=== PATIENT | female | born 1940 | race African-American/Black ===

== ENCOUNTER → 2016-12-12 | Outpatient (CLI) | payer OTHER ==
[~2016-12-12] VITALS: Ht 160 cm; Wt 119.8 kg
[~2016-12-12] MED LIST: BENTYL 20 MG TA20 M1 PO; HYDROCODON-ACE1 EA12 PO; HYDROCODONE-AP1 EAC6 PO; HYDROCODONE-APA1 TA1 PO; IRON325 MG PO; LIDODERM 5%1 PATC1 TRANSDERM; LIPITOR10 MG PO; METFORMIN HCL500 MG PO; METHOCARBAMOL500 M1 PO; MOBIC7.5 MG PO; PERPHENAZINE PO; SENOKOT-S1 TA1 PO; UNICOMPLEX M TA1 TA1 PO; ZANTAC 150MG T150 MG PO; ZOLOFT50 MG PO
--- NOTE | ~2016-12-12 | HPC ---
[facility] [address] [place] [address] PAIN MANAGEMENT CONSULTATION Name: TERENCEGI F Room #: REG DENNY Leiva#: [id number] Admission: 12/12/16 Attend Phys: Edouard Edwards DO Discharge: Date of : 39 Report #: [id number] THIS REPORT FOR: //name// CC: Seymour Edwards The patient is a 76-year-old female, she had prior been seen as an in-hospital patient in January 2015, nearly 2 years ago for SI mediated pain with trigger point in the gluteus medius, she had prior been seen in 2013 for left SI mediated pain. She somewhat lost to follow up. She returns to pain clinic today for prolonged visit, was seen in the clinic from 10:24, taken to procedure room at 10:50. Greater than 50% of this 25+ minute visit was spent counseling the patient. The patient notes pain has recurred primarily in the low back, radiating into the right thigh, leg, and ankle. She notes thigh. She has been taking copious amount of [employer]ers Back and Body aspirin containing substance, which unfortunately caused significant gastroesophageal reflux. Hydrocodone causes cognitive dysfunction. She notes no specific weakness, but does have paresthesia in the right leg. She denies saddle anesthesia or bowel or bladder continence changes. Rates the pain anywhere from 10 to "15" on a 0-10 visual analog scale. She notes the pain is exacerbated with standing and walking. REVIEW OF SYSTEMS: A complete review of systems was attached to chart and was gone over with the patient. She is . She has a history of non-insulin dependent diabetes, uses metformin; history of dyslipidemia for which she takes atorvastatin, diverticulitis by history, Zoloft for some chronic anxiety and depression. MEDICATIONS: List was reconciled. Pain impact score is averages about 5.2 for all indices queried. PHYSICAL EXAMINATION: Reveals a 5 feet 3 inches, 264 pounds female, BMI is 46.8 kg/m2. Blood pressure is 142/73, pulse 77, and respirations are 18. Cranial nerves 2-12 are grossly intact. Pupils are equal and reactive to light and accommodation. Extraocular muscles are intact. Thyroid is enlarged, no nodules are noted. Cervical range of motion is adequate. Upper extremity strength is preserved. Heart is regular rhythmical without murmur. Lungs are clear. She has a markedly endomorphic build. Rises from chair using armrest. She has a very poor balance. Lumbar flexion averages to good about 90 degrees. Tender in the low back from about L4 down. Lower extremity strength is objectively symmetric. Positive straight leg raise bilaterally. Rene test is negative. Patellar and Achilles reflexes are diminished, but symmetric. Reviewed MRI from 05/21/2014. She has a grade 1 anterolisthesis at L4-L5, fairly significant stenosis at 0.62 cm, dramatic stenosis at L3-4 at 0.42 cm. ASSESSMENT: Symptomatic lumbar radiculopathy secondary to spinal stenosis, [address] [address] PAIN MANAGEMENT CONSULTATION Name: GI PRATT Room #: REG DENNY Leiva#: [id number] Admission: 12/12/16 Attend Phys: Edouard Edwards DO Discharge: Date of : 39 Report #: [id number] sacroiliac joint dysfunction. RECOMMENDATIONS: 1. Meloxicam 7.5 mg b.i.d., discontinue the copious use of Bayers Back and Body. 2. Epidural injection under fluoroscopy today at L5-S1 with 60 mg of triamcinolone 3. Follow up in 3-4 weeks for reevaluation. PROCEDURE NOTE: Lumbar epidural injection under fluoroscopy. PROCEDURE NOTE: After both written and informed consent to include risk of spinal cord damage, increased pain, weakness and dural puncture, the patient was taken to the fluoroscopy suite, placed in the prone position. After sterile prep and drape, a skin wheal with lidocaine was raised. A 6-inch 20-gauge epidural Tuohy needle was inserted in the midline at L5-S1 with good loss to resistance. Negative aspiration for cerebrospinal fluid or blood was noted. Then 1 mL of Omnipaque under biplanar fluoroscopy showed good spread within the epidural space. This was followed with 60 mg of triamcinolone plus 1 mL of 1.5% preservative-free Xylocaine, 0.5 mL Xylocaine was then injected to flush the needle; it was removed. The patient was monitored for an appropriate period of time and discharged in good and stable condition. The patient was discharged in good and stable condition. By: [id number] Edouard Edwards DO /nt
[2016-12-12 09:57] VITALS: BP 142/73
== END | disposition home or self-care (01) ==
LOC: PAIN 06:49
DX: M48.06 Spinal stenosis, lumbar region (principal); M53.3 Sacrococcygeal disorders, not elsewhere classified; F32.9 Major depressive disorder, single episode, unspecified; E11.9 Type 2 diabetes mellitus without complications; Z98.890 Other specified postprocedural states

== ENCOUNTER → 2017-01-02 | Outpatient (CLI) | payer OTHER ==
[~2017-01-02] VITALS: Ht 160 cm; Wt 120.7 kg
[~2017-01-02] MED LIST changes: +ASPIR 8181 MG PO
--- NOTE | ~2017-01-02 | HPC ---
[facility] [place] [address] PAIN MANAGEMENT CONSULTATION Name: ALONZO PRATTDESTINY Tucker Room #: REG DENNY Leiva#: [id number] Admission: 01/02/17 Attend Phys: Edouard Edwards DO Discharge: Date of : 39 Report #: [id number] THIS REPORT FOR: //name// CC: Seymour Edwards The patient is a delightful [id number]. She was seen back in 2014 for symptomatic lumbar radiculopathy. I had given epidural injection with excellent relief and lost to followup. I saw her back again 12/12/2016. The pain recurred. We did a lumbar epidural injection at L5-S1 with 60 mg of triamcinolone in consideration of her glucose intolerance. She returns to pain clinic today noting that pain has dramatically improved. In fact, she states, the pain has "99%" improved, still working great, has been able to increase in activities. She had more right lumbar radicular pain. She now has little pain in the left side. She notes, if she stands for a period of time, she gets paresthesia in the left leg, but this has not been interfering with function. PHYSICAL EXAMINATION: Shows a 76-year-old female, appearing younger than her stated age. She is moderately over weight with a BMI of 47.1 kilograms per meter squared. She does not use tobacco products. Blood pressure is 143/71, pulse 76, respirations are 16. She rises from the chair using arm rest. Gait is tandem. Lower extremity strength in preserved. She has excellent 90+ degree of flexion. She notes she has had been having little bit of heart burn recently, I had given her a 30-day course of meloxicam 7.5 mg b.i.d. ASSESSMENT: Symptomatic lumbar radiculopathy and sacroiliac joint dysfunction by history. Excellent improvement following one epidural injection, 99% pain relief and ongoing. RECOMMENDATION: I told patient to just continue meloxicam today, if symptoms begin to recur, start taking meloxicam once or twice daily with meals. If this does not significantly ameliorate symptoms, I will be happy to see her as needed for consideration for repeat epidural injection under fluoroscopy and/or consideration for SI joint injection if indicated clinically. I am happy to report today. However, the patient is doing very well. It really does not warrant further interventional therapy at his time. I strongly encouraged to watch food intake, increased physical activity, and keep an eye towards trying to drop little bit of weight. By: [id number] Edouard Edwards DO /nt
[2017-01-02 09:51] VITALS: BP 143/71
== END ==
LOC: PAIN 06:56
DX: M54.16 Radiculopathy, lumbar region (principal); M53.3 Sacrococcygeal disorders, not elsewhere classified

== ENCOUNTER → 2017-06-09 | Outpatient (CLI) | payer OTHER ==
[~2017-06-09] VITALS: Ht 160 cm; Wt 122.7 kg
[~2017-06-09] MED LIST changes: +TRAMADOL HCL E100 MG PO
--- NOTE | ~2017-06-09 | HPC ---
[facility] [place] [address] PAIN MANAGEMENT CONSULTATION Name: TERENCEGI F Room #: REG DNENY [place].#: [id number] Admission: 06/09/17 Attend Phys: Edouard Edwards DO Discharge: Date of : 39 Report #: [id number] THIS REPORT FOR: //name// CC: Seymour Edwards DATE OF SERVICE: 06/09/2017 HISTORY OF PRESENT ILLNESS: The patient is a 77-year-old female, prior seen in the pain clinic on 12/12/2016. We did a lumbar epidural injection at L5-S1 at that time. She had prior been seen in 2014, somewhat lost to follow up. Returns to pain clinic today noting that injection afforded dramatic relief. In fact, she notes pain relief is still ongoing, rates pain as 0 at present, had been up to a 10 prior to the injection. She states she has had at least 50% improvement overall. She notes meloxicam, which had been scheduled as 7.5 mg b.i.d. to use on a nondaily basis is really not affording any relief. She is morbidly obese and has some cardiac risk factors. We elected to simply discontinue that medication today. Notes the pain is primarily in right low back, hip and leg. The patient notes that in the morning, she has significant pain upon arising but after moving for about 30 minutes, pain is fairly well controlled. She states she does well during the day. Sometimes at night when she gets up to urinate, pain is problematic to the point that she has to go back and sleep in a chair. Again, she does fairly well sleeping but then wakes up with pain for 30 minutes a day. PHYSICAL EXAMINATION: Otherwise unchanged. A pleasant 77-year-old female, morbidly obese with BMI of 47.9 kilograms per meter squared. Vital signs are generally stable as noted in the EMR with modest hypertension, 173/79; pulse 84; respirations 18; room air oxygen saturation 96%. Rises from chair using armrest, modestly antalgic gait. Patellar reflexes absent on the right, 1/4 in the left. Straight leg raise is negative at this time. Slight decreased right hip flexion strength exacerbating some low back pain. She does have pain in the right hip after resistance to right hip flexion. DIAGNOSTIC DATA: I reviewed the patient's diagnostic findings including MRI of the lumbar spine, which had noted slight left convexity with a grade 1 anterolisthesis at L4-L5, stenosis at L4-L5 down to about 0.62 cm, dramatic stenosis at L3-L4 down to 0.42 cm. ASSESSMENT: Symptomatic lumbar radiculopathy secondary to spinal stenosis in a pleasant yet morbidly obese 77-year-old female with component of sacroiliac mediated pain. RECOMMENDATION: Long discussion with the patient today about therapeutic [facility] [address] [place] [address] PAIN MANAGEMENT CONSULTATION Name: GI PRATT [id number] Admission: 06/09/17 Attend Phys: Edouard Edwards DO Discharge: Date of : 39 Report #: [id number] options. Repeat epidural injection as needed for exacerbation of radicular symptoms. Presently, she is doing reasonably well. We will trial a long-acting tramadol extended release at bedtime. Hopefully, this will give her some pain relief in the morning. She has had been very sensitive to opiate analgesics due to constipation in the past. We will trial this for about 30 days with 1 refill. If she is doing better with this agent, we will simply follow up as needed. Tylenol does not afford a good relief. Due to some renal compromise and history of coronary artery disease, she is not a good candidate for nonsteroidal anti-inflammatory medications. Not a good candidate for stronger opiate analgesics as; A. She simply does not need them. B. They cause constipation. Hopefully, tramadol extended release will give her pain relief for a prolonged period of time, i.e., taking tablet at night will be available in the morning. It seems superfluous can take a short acting tramadol tablet in the morning as it takes about 30 minutes to come on board and that is about how long her pain is before activity seems to mitigate the pain. Discharged in good and stable condition. <ELECTRONICALLY SIGNED> By: Edouard Edwards DO 06/12/17 0742 1224 [id number] Edouard Edwards DO /nt
[2017-06-09 10:16] VITALS: BP 173/79
== END | disposition home or self-care (01) ==
LOC: PAIN 06:55
DX: M48.061 Spinal stenosis, lumbar region without neurogenic claudication (principal); M53.3 Sacrococcygeal disorders, not elsewhere classified; G89.29 Other chronic pain; D64.9 Anemia, unspecified; F41.8 Other specified anxiety disorders; E66.01 Morbid (severe) obesity due to excess calories; Z68.42 Body mass index [BMI] 45.0-49.9, adult; Z79.82 Long term (current) use of aspirin; Z79.899 Other long term (current) drug therapy

== ENCOUNTER → 2017-09-14 | Outpatient (CLI) | payer OTHER ==
[~2017-09-14] VITALS: Ht 160 cm; Wt 118.4 kg
[~2017-09-14] MED LIST changes: +OXYCODONE HCL 55 MG PO; +PEPCID20 MG PO
--- NOTE | ~2017-09-14 | HPC ---
[facility] [place] [address] PAIN MANAGEMENT CONSULTATION Name: ALONZO PRATTAINE Garrett Room #: REG DENNY Leiva#: [id number] Admission: 09/14/17 Attend Phys: Edouard Edwards DO Discharge: Date of : 39 Report #: [id number] THIS REPORT FOR: //name// CC: Seymour Edwards The patient is a pleasant 77-year-old female being seen for symptomatic lumbar radiculopathy secondary to spinal stenosis, component of axial back pain. She was last seen in pain clinic back in May. We did start the patient on tramadol extended release 100 mg 1 in the morning. In the interval since we last saw her, she had been in the ER, 07/02/2017 for some right-sided chest pain. This was treated conservatively. Returns to pain clinic. She notes chronic back, right leg and shoulder pain remains modestly problematic, but tramadol extended release 100 mg simply 1 in the morning has been quite efficacious for her. Last visit, we rotated this agent, tramadol 50 mg p.r.n. was losing efficacy. She notes pain is worse in the morning, but she takes her tramadol 100 mg extended release typically 7-8:30 a.m. when she gets up. Within short period of time, she states pain relief is good and last throughout the day. She is participating in all activities of daily living. No problems daytime somnolence, mental acuity changes, constipation. Physical exam shows pleasant 77-year-old female, moderately obese with a BMI of 46.2 kilograms per meter squared. Blood pressure is 160/89, pulse 71, respirations are 20. Rises easily. Gait is tandem. Diffuse axial back pain, no discrete trigger points noted. No focal problems noted. Medications were reconciled and include atorvastatin for dyslipidemia, sertraline for some chronic anxiety, metformin for non-insulin dependent diabetes, famotidine for gastroesophageal reflux and the aforementioned tramadol 100 mg extended release in the morning. We reviewed the fact that opiate medications are being used to provide analgesia adequate to support activities of daily living, not attempting to achieve a specific pain score on the 0-10 Visual Analog Scale. The current opiate medications are providing sufficient analgesia to allow the patient to participate in activities of daily living. The patient is not exhibiting any aberrant behavior suggestive of drug diversion. The patient is not having any adverse reactions to medications. The patient is not suffering from daytime somnolence or mental acuity changes. The patient is managing opiate-induced constipation with appropriate [id number] agents and dietary considerations. The patient was counseled on concern for caution with operating a motor vehicle while using opiate medications. [address] [address] PAIN MANAGEMENT CONSULTATION Name: GI PRATT Room #: REG [facility] Cali#: [id number] Admission: 09/14/17 Attend Phys: Edouard Edwards DO Discharge: Date of : 39 Report #: [id number] A physical exam was performed and the patient's functional status was evaluated. All patients with back pain were advised against the bed rest greater than 4 days and were advised to return to normal activities. Pain score assessment was noted and the treatment plan was reviewed with the patient. All current medications, both prescribed and OTC were reviewed and reconciled on the electronic medical record. Tobacco screening was accomplished and smoking cessation was advised when indicated. BMI was noted and diet/exercise modification was recommended for all patients following outside normal parameters. I reviewed with the patient today their responsibilities to safeguard prescription medications, reviewed their responsibility to utilize medications only as prescribed by the physician. They are to seek and receive pain medications only from 1 physician group ( [facility]). They are to use 1 pharmacy and keep the clinic informed if they change pharmacies. Their responsibilities include making followup visits in a timely fashion and to avoid abrupt discontinuation of medication usage. Their responsibilities further include bringing their medications (bottles from the pharmacy with residual pills) to the visit for possible confirmation of pill counts and the patient understands it is their responsibility to submit to random drug screens to ensure both that the medications prescribed are present, and that no other controlled substances are present. All prescriptions provided today were generated electronically. ASSESSMENT: Chronic axial back pain, lumbar radiculopathy secondary to spinal stenosis, component of sacroiliac mediated pain. The patient is doing well on current medication. Last epidural injection was back in November of 2016. She has had no significant radicular symptoms since. RECOMMENDATIONS: Continue tramadol extended release 100 mg 1 in the morning, taken the liberty of writing for 30 tablets with 5 refills. Follow up at that time, earlier if needed. <ELECTRONICALLY SIGNED> By: Edouard Edwards DO 09/15/17 0757 1600 1830 Edouard Edwards DO /nt
[2017-09-14 09:44] VITALS: BP 160/89
== END ==
LOC: PAIN 07:07
DX: M54.16 Radiculopathy, lumbar region (principal); M48.061 Spinal stenosis, lumbar region without neurogenic claudication

== ENCOUNTER 2017-10-21 03:52 | Inpatient (IN) | payer OTHER ==
[~2017-10-21] VITALS: Ht 160 cm; Wt 136.1 kg
--- NOTE | ~2017-10-21 | HC ---
[facility] [place] [address] [place] [address] CONSULTATION Name: GI PRATT Room #: 423-1 ADM IN M.R.#: [id number] Admission: 10/21/17 Attend Phys: Seymour Gee MD Discharge: Date of : 39 Report #: [id number] THIS REPORT FOR: //name// CC: Alexander Gold Seymour Gee DATE OF SERVICE: 10/21/2017 REASON FOR CONSULTATION: Hematochezia. CONSULTING PHYSICIAN: Seymour Gee MD HISTORY OF PRESENT ILLNESS: This is a 77-year-old female who is admitted via the Emergency Room with hematochezia. She describes painless bright red blood per rectum that started at 10:00 p.m. last night. She reports 7 painless bowel movements with og blood. Her last bowel movement was at 6:00 a.m. She has not had any more bowel movements since then. Currently, she denies any abdominal pain, nausea, vomiting or melena. She reports having colonoscopy at least 4 years ago, but is unaware of the results. REVIEW OF SYSTEMS: As in HPI, otherwise 10-point review of systems was obtained and negative. PAST MEDICAL AND SURGICAL HISTORY: 1. Chest pain. 2. Right hip pain. 3. History of gastrointestinal bleed. 4. Metabolic syndrome. 5. Hyperlipidemia. 6. Cholecystectomy. 7. Tubal ligation. 8. Tonsillectomy. ALLERGIES AND MEDICATIONS: Reviewed and noted. SOCIAL HISTORY: Denies tobacco or illegal drug use. Reports occasional alcohol intake. FAMILY HISTORY: No family member with colorectal cancer or other GI malignancy. PHYSICAL EXAMINATION: GENERAL: Alert, oriented to time, place and person, cooperative, appears in mild distress. VITAL SIGNS: Hemodynamically stable, afebrile. HEAD: Normocephalic, atraumatic head. [facility] [address] [place] [address] CONSULTATION Name: GI PRATT Room #: 423-1 [facility].#: [id number] Admission: 10/21/17 Attend Phys: Seymour Gee MD Discharge: Date of : 39 Report #: [id number] EYES: Pupils equal, round and reactive to light and accommodation. Extraocular movements intact. No pallor, no icterus. NECK: Supple. Midline trachea. Thyroid not palpable. CARDIOVASCULAR: Regular rate and rhythm. No murmur. RESPIRATORY: Chest clear to auscultation bilaterally. ABDOMEN: Soft, nontender, nondistended. Bowel sounds present. EXTREMITIES: No cyanosis, clubbing or edema. SKIN: Warm and dry. No rashes present. NEUROLOGIC: Cranial nerves 2-12 grossly intact. No focal deficit. LABORATORY DATA: Hemoglobin 12.4. BUN 17, creatinine 0.9. Normal liver function test. CT scan shows a hyperdensity in the rectum along with descending and sigmoid diverticulosis. DIAGNOSTIC IMPRESSION AND PLAN: 1. Rectal bleeding. Painless hematochezia is suggestive of diverticular bleed. I explained to her that if this is diverticular bleed, it stops spontaneously about 80% of the time. She will be monitored here in the hospital for another 24 hours for any recurrent bleeding. If she does not have any recurrence of bleeding, then she can be discharged home. She warrants a colonoscopy as an outpatient that can be arranged in the next 2-4 weeks. 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 2. Abnormal CT hyperdensity in the rectum could be a normal variant versus rectal polyp or solitary rectal ulcer syndrome. She does report recent constipation and could have a rectal ulcer that may have caused this rectal bleeding. I recommend aggressive bowel regimen with increased water intake up to 8-10 glasses a day along with MiraLax on a daily basis until she has a colonoscopy. She voiced understanding. Thank you for allowing me to participate in the care of the patient. <ELECTRONICALLY SIGNED> By: Sterling Damon MD 10/22/17 0913 [id number] [id number] Sterling Damon MD /nt
--- NOTE | ~2017-10-21 | P ---
[facility] [place] [address] [place] [address] PROCEDURE REPORT Name: GI PRATT Room #: 423-1 ADM IN M.R.#: [id number] Admission: 10/21/17 Attend Phys: Seymour Gee MD Discharge: Date of : 39 Report #: [id number] THIS REPORT FOR: //name// CC: Alexander Gee MD DATE OF SERVICE: 10/23/2017 PROCEDURE PERFORMED: Colonoscopy. HISTORY OF PRESENT ILLNESS: The patient is a 77-year-old female with bright red blood per rectum. Denies any abdominal pain. She was seen by my partner yesterday, had continued bleeding; therefore, plan is for colonoscopy today. A CT scan showed rectal hyperdensity which could be an ulcer from underlying constipation versus rectal polyp versus neoplasm. Diverticulosis was also noted in the descending and sigmoid colon. DESCRIPTION OF PROCEDURE: The risks and benefits of the procedure were explained to the patient, those risks including but not limited to bleeding, perforation, the risk of sedation. She understood these risks and gave informed consent. Sedation was given using propofol per anesthesia. Next, a digital rectal exam was initially performed, which was normal. Next, using a standard Fujinon colonoscope, the scope was placed in the patient's anus and advanced under direct vision to the cecum. The overall prep was good. The cecum and ileocecal valve were normal in appearance. There was no evidence of bleeding throughout. There was no blood throughout the ascending and transverse colon. A few scattered diverticula were noted, but again no evidence of blood. In the descending and sigmoid colon, however, there was bright red blood throughout this area. I spent approximately 45 minutes washing and aspirating the left colon. Multiple diverticula were noted throughout this region. There was not an active bleeding diverticulum noted. I went back and forth in this region multiple times as well. There was no evidence of colitis or inflammation as well. The rectal mucosa was normal. There was no thickening, no abnormalities or colitis within the rectum. On retroflexion, small nonbleeding internal hemorrhoids were noted. At this point, the scope was then withdrawn and the procedure terminated. The patient tolerated the procedure well. IMPRESSION: 1. Multiple diverticula in the descending and sigmoid colon, likely source of recent gastrointestinal bleed, bright red blood in this area, but no active bleeding. Again, I spent a long period of time observing and there was no active bleeding. 2. Normal rectum. 3. Small nonbleeding internal hemorrhoids. [facility] [address] [place] [address] PROCEDURE REPORT Name: GI PRATT Room #: [facility] IN [facility].#: [id number] Admission: 10/21/17 Attend Phys: Seymour Gee MD Discharge: Date of : 39 Report #: [id number] RECOMMENDATIONS: I suspect the patient had a diverticular bleed, which has stopped at this point. We would recommend observing. We will advance diet. If she has rebleed in the near future, may consider Interventional Radiology with arteriogram. Thank you for allowing me to participate in her care. <ELECTRONICALLY SIGNED> By: Nima Yates MD 10/23/17 1948 1110 1239 Nima Yates MD /nt
[2017-10-21 03:52] VITALS: BP 176/91
[2017-10-21 04:24] LABS: ABSOLUTE NEUTROPHILS 2.7 thou/uL (1.4-8.2); BASOPHILS 1.1 % (0.0-2.0); EOSINOPHILS 2.2 % (0.0-3.0); HEMATOCRIT 37.2 % (37.0-47.0); HEMOGLOBIN 12.4 gm/dL (12.0-15.0); LYMPHOCYTES 39.2 % (24.0-44.0); MCH 30.6 pg (26.0-34.0); MCHC 33.2 g/dL (28.0-37.0); MONOCYTES 9.2 % (1.0-8.0); PLATELET COUNT 256 thou/uL (150-400); POLYS 48.3 % (36.0-66.0); RBC 4.04 mil/uL (4.20-5.00); RDW 15.6 % (10.5-14.5); WBC 5.7 thou/uL (4.0-11.0)
[2017-10-21 04:44] LABS: CALCIUM 9.1 mg/dL (8.5-10.1); CREATININE 0.9 mg/dL (0.6-1.0); POTASSIUM 4.2 mmol/L (3.5-5.1)
[2017-10-21 04:49] LABS: ALBUMIN 3.4 g/dL (3.4-5.0); DIRECT BILIRUBIN 0.1 mg/dL (<0.1-0.3); TOTAL BILIRUBIN 0.3 mg/dL (<0.1-1.0); TOTAL PROTEIN 6.5 g/dL (6.4-8.2)
[2017-10-21 06:24] VITALS: BP 144/93
[2017-10-21 07:01] VITALS: BP 169/68
[2017-10-21 17:33] VITALS: BP 138/52
[2017-10-21 20:30] VITALS: BP 146/59
[2017-10-22 04:30] VITALS: BP 120/55
[2017-10-22 07:10] VITALS: BP 137/71
[2017-10-22 11:38] LABS: HEMATOCRIT 34.8 % (37.0-47.0); HEMOGLOBIN 11.7 gm/dL (12.0-15.0); MCH 31.2 pg (26.0-34.0); MCHC 33.7 g/dL (28.0-37.0); MCV 92.5 fL (80.0-100.0); RBC 3.76 mil/uL (4.20-5.00); RDW 15.9 % (10.5-14.5); WBC 5.9 thou/uL (4.0-11.0)
[2017-10-22 15:40] VITALS: BP 122/47
[2017-10-22 20:00] VITALS: BP 153/62
[2017-10-22 20:16] LABS: HEMOGLOBIN 10.8 gm/dL (12.0-15.0)
[2017-10-23 04:00] VITALS: BP 151/54
[2017-10-23 08:00] VITALS: BP 158/69
[2017-10-23 15:20] VITALS: BP 144/56
[2017-10-23 20:18] VITALS: BP 147/44
[2017-10-23 23:50] VITALS: BP 135/55
[2017-10-24 04:23] VITALS: BP 122/47
[2017-10-24 07:22] VITALS: BP 128/51
[2017-10-24 10:06] VITALS: BP 128/51
[2018-02-12] MEDS ORDERED: TRAMADOL HCL E100 MG PO (09:13)
== END 2017-10-24 10:49 | disposition home or self-care (01) | DRG 378 ==
LOC: ER 03:52 → EROBS 05:58 → 4E 05:58
PROVIDERS: Emergency Medicine; Family Medicine
PROC: 0DJD8ZZ Inspection of Lower Intestinal Tract, Via Natural or Artificial Opening Endoscopic (ICD-10-PCS; principal; 2017-10-23)
DX: K57.31 Diverticulosis of large intestine without perforation or abscess with bleeding (principal); D62 Acute posthemorrhagic anemia; K64.8 Other hemorrhoids; E11.9 Type 2 diabetes mellitus without complications; I10 Essential (primary) hypertension; K59.00 Constipation, unspecified; F32.9 Major depressive disorder, single episode, unspecified; D50.9 Iron deficiency anemia, unspecified; Z90.49 Acquired absence of other specified parts of digestive tract; Z79.899 Other long term (current) drug therapy; Z82.49 Family history of ischemic heart disease and other diseases of the circulatory system
CPT/HCPCS: 10084; 62110; 62900; 70005

== ENCOUNTER → 2018-02-12 | Outpatient (CLI) | payer OTHER ==
[~2018-02-12] VITALS: Ht 160 cm; Wt 116.1 kg
--- NOTE | ~2018-02-12 | HPC ---
[facility] [place] [address] PAIN MANAGEMENT CONSULTATION Name: GI PRATT [id number] Admission: 02/12/18 Attend Phys: Edouard Edwards DO Discharge: Date of : 39 Report #: [id number] THIS REPORT FOR: //name// CC: Seymour Edwards DATE OF SERVICE: 02/12/2018 The patient is a 77-year-old female typically treated for axial back pain, component of lumbar radiculopathy requiring complex medication management. Last seen in pain clinic back in August. Continued on tramadol extended release 100 mg 1 in the morning. I gave her 6-month of medications at that time. In the interval since we saw her, she was admitted to the hospital late September for what sounded like diverticulitis and hematochezia. The symptoms have resolved. Returns to pain clinic today noting tramadol continues to help with her general pain though she is developing increasing pain in a right L4 distribution. We had given her an epidural injection back in 11/2016 with overall relief of this particular pain. She is also noticing pain in the left low back SI area, which seems to be coming all without antecedent trauma or overuse. PHYSICAL EXAMINATION: Shows 77-year-old female, BMI is quite elevated at 45.4 kilograms per meter squared. Vital signs are generally stable. Rises from chair using armrest, modestly antalgic gait. A little tenderness in the left SI area. Positive straight leg raise on the right with subjective pain in L4 distribution lateral aspect of the leg down to the foot with some pain in the groin as well. We reviewed the fact that opiate medications are being used to provide analgesia adequate to support activities of daily living, not attempting to achieve a specific pain score on the 0-10 Visual Analog Scale. The current opiate medications are providing sufficient analgesia to allow the patient to participate in activities of daily living. The patient is not exhibiting any aberrant behavior suggestive of drug diversion. The patient is not having any adverse reactions to medications. The patient is not suffering from daytime somnolence or mental acuity changes. The patient is managing opiate-induced constipation with appropriate yotn-qyc-dwippdi agents and dietary considerations. The patient was counseled on concern for caution with operating a motor vehicle while using opiate medications. A physical exam was performed and the patient's functional status was evaluated. All patients with back pain were advised against the bed rest greater than 4 days and were advised to return to normal activities. Pain score assessment was noted and the treatment plan was reviewed with the patient. All current medications, both prescribed and OTC were reviewed and reconciled on the electronic medical record. Tobacco screening was accomplished and smoking cessation was advised when indicated. BMI was noted and diet/[place] [address] PAIN MANAGEMENT CONSULTATION Name: GI PRATT Room #: REG [facility] [place]#: [id number] Admission: 02/12/18 Attend Phys: Edouard Edwards DO Discharge: Date of : 39 Report #: [id number] modification was recommended for all patients following outside normal parameters. I reviewed with the patient today their responsibilities to safeguard prescription medications, reviewed their responsibility to utilize medications only as prescribed by the physician. They are to seek and receive pain medications only from 1 physician group ( [facility]). They are to use 1 pharmacy and keep the clinic informed if they change pharmacies. Their responsibilities include making followup visits in a timely fashion and to avoid abrupt discontinuation of medication usage. Their responsibilities further include bringing their medications (bottles from the pharmacy with residual pills) to the visit for possible confirmation of pill counts and the patient understands it is their responsibility to submit to random drug screens to ensure both that the medications prescribed are present, and that no other controlled substances are present. All prescriptions provided today were generated electronically. ASSESSMENT #1: Symptomatic lumbar radiculopathy by clinical exam and history, component of axial back pain requiring complex medication management. RECOMMENDATIONS: Continue tramadol extended release 100 mg 1 a day, dispense 30 tablets with 5 refills. ASSESSMENT #2: Acute exacerbation of right L4 radicular pain and some left L5 radicular pain. RECOMMENDATION: Epidural injection under fluoroscopy today. Follow up in 2 weeks to evaluate efficacy. PROCEDURE: Lumbar epidural injection under fluoroscopy. PROCEDURE NOTE: After both written and informed consent to include risk of spinal cord damage, increased pain, weakness and dural puncture, the patient was taken to the fluoroscopy suite, placed in the prone position. After sterile prep and drape, a skin wheal with lidocaine was raised. A 4-1/2 20-gauge epidural Tuohy needle was inserted in the midline at L5-S1 with good loss to resistance. Negative aspiration for cerebrospinal fluid or blood was noted. Then 1 mL of Omnipaque under biplanar fluoroscopy showed good spread within the epidural space. This was followed with 80 mg of triamcinolone plus 1 mL of 1.5% preservative-free Xylocaine, 0.5 mL Xylocaine was then injected to flush the needle; it was removed. The patient was monitored for an appropriate period of time and discharged in good and stable condition. <ELECTRONICALLY SIGNED> By: Edouard Edwards DO 02/15/18 0805 [id number] Edouard Edwards DO /nt
[2018-02-12 08:51] VITALS: BP 131/63
== END | disposition home or self-care (01) ==
LOC: PAIN 06:30
DX: M54.16 Radiculopathy, lumbar region (principal); G89.29 Other chronic pain; Z79.891 Long term (current) use of opiate analgesic; Z79.82 Long term (current) use of aspirin; Z79.899 Other long term (current) drug therapy; Z87.19 Personal history of other diseases of the digestive system

== ENCOUNTER → 2018-07-17 | Outpatient (CLI) | payer OTHER ==
[~2018-07-17] VITALS: Ht 160 cm; Wt 118.1 kg
[~2018-07-17] MED LIST changes: -IRON325 MG PO; +IRON325 PO; +PROTONIX40 M1 PO; +TRAMADOL 50 MG50 MG PO
--- NOTE | ~2018-07-17 | P ---
[facility] [place] [address] PROCEDURE REPORT Name: TERENCEGI F Room #: REG [facility].#: [id number] Admission: 07/17/18 Attend Phys: Bairon Edwards DO Discharge: Date of : 39 Report #: [id number] THIS REPORT FOR: //name// CC: Bairon Gee MD DATE OF SERVICE: 07/17/2018 DESCRIPTION OF PROCEDURE: L5-S1 right paramedian epidural steroid injection under fluoroscopic guidance. After obtaining written consent, the patient was taken back to fluoroscopy suite, placed in prone position with pillow under abdomen to decrease lumbar lordosis. Skin overlying lumbosacral area then prepped and draped in aseptic fashion. The L5-S1 vertebral interspace identified by AP fluoroscopy. Skin and subcutaneous tissue overlying target site of injection was anesthetized with 3 mL of 1% lidocaine. A 20-gauge 4-1/2-inch Tuohy needle advanced under fluoroscopic guidance towards the epidural space using a right paramedian approach. Epidural space identified using loss of resistance to air technique. After negative aspiration for heme or cerebrospinal fluid, 1 mL of Omnipaque injected. Lumbar epidurogram confirmed using both AP and lateral fluoroscopy. After negative aspiration for heme or cerebrospinal fluid, 5 mL of a solution containing 2 mL 40 mg per mL, 80 mg total triamcinolone, 3 mL lidocaine 1% injected slowly. Needle retracted approximately half way, flushed with 1 mL of 1% lidocaine and removed. Sterile bandage placed over injection site. No new motor deficits present in the lower extremities following procedure. The patient tolerated procedure well, carefully escorted to recovery room in stable condition. No apparent complication. After meeting discharge criteria, the patient discharged home. <ELECTRONICALLY SIGNED> By: Bairon Edwards DO 07/24/18 1109 1351 1425 Bairon Edwards DO /nt
--- NOTE | ~2018-07-17 | HPC ---
[facility] [address] [place] [address] PAIN MANAGEMENT CONSULTATION Name: GI PRATT Room #: REG [facility].#: [id number] Admission: 07/17/18 Attend Phys: Bairon Edwards DO Discharge: Date of : 39 Report #: [id number] THIS REPORT FOR: //name// CC: Bairon Gee MD DATE OF SERVICE: 07/17/2018 CHIEF COMPLAINT: Low back pain, right hip and posterolateral thigh pain. HISTORY OF PRESENT ILLNESS: As you know, the patient is a 78-year-old female who returns today in followup visit with recurrent pain, now reporting pain score at 8-10/10. The patient reports good efficacy with previous epidural injection reporting approximately 60% improvement overall. She returns today to undergo next in the series of epidural injections. She denies injury or trauma that may have led to symptom recurrence. She indicates pain begins in the low back, radiates down the right leg, also intermittent left calf pain. She states her pain is chronic, sharp and deep in sensation. Again, the patient reports pain is 8-10/10. She returns to undergo next in the series of epidural injections. ALLERGIES: No known drug allergies. CURRENT MEDICATIONS: Tramadol, pantoprazole, multivitamin, perphenazine, ferrous sulfate, sertraline, atorvastatin. SOCIAL HISTORY: The patient denies tobacco, alcohol, IV or illicit drug use. She is unaccompanied today. IMAGING: No new imaging available. PQRS: The patient has known osteoarthritic changes in the low back, bilateral hips, no rheumatoid arthritis. Places current pain score at 8-9/10. She is not a fall risk. Has not had a fall in the last 3 months. She is not on blood thinner. She is not treated for hypertension. She is not on opioids. She has a moderate risk of opioid addiction. She is placing pain impact score 39/70, moderate interference of daily activity. PHYSICAL EXAMINATION: VITAL SIGNS: Blood pressure 143/78, pulse 85, respiratory rate 18 and unlabored. The patient is 97% on room air. Height 5 feet 3 inches tall, weight 260.4 pounds, BMI calculated 46.1. GENERAL: Well-developed, well-nourished, well-hydrated, class 3, morbidly obese 78-year-old female appearing stated age, placing current pain score at 8-9/10. HEENT: Normocephalic, atraumatic. Pupils equal, round, reactive to light. [facility] [address] [place] [address] PAIN MANAGEMENT CONSULTATION Name: GI PRATT Room #: [facility]#: [id number] Admission: 07/17/18 Attend Phys: Bairon Edwards DO Discharge: Date of : 39 Report #: [id number] EXTREMITIES: Show no clubbing, no cyanosis, no edema. MUSCULOSKELETAL: Lower extremity strength appears symmetrical with deconditioning noted. Ankle clonus negative. Babinski is negative. Seated straight leg raising negative. Supine straight leg raising mildly positive on the right. Rene's test is positive on the right. ASSESSMENT: 1. Lumbar radiculopathy. 2. Lumbosacral spondylosis with radiculopathy. 3. Facet arthropathy of lumbar spine. 4. Chronic intractable pain. PLAN: 1. The patient has returned today in followup visit indicating greater than 60% improvement in overall pain with previous epidural injection. The patient reports no new injury or trauma that may have led to symptom recurrence. The last injection was 01/2018. She returns today to undergo next in the series in hopes of improving pain further. She has been advised the risks and benefits, states she understood and wished to proceed. 2. No medication changes made at today's visit. The patient will continue current medical therapy as previously prescribed. 3. We will see the patient back in followup visit on an as needed basis for the next in the series of lumbar epidural injections. <ELECTRONICALLY SIGNED> By: Bairon Edwards DO 07/24/18 1109 1351 1423 Bairon Edwards DO /nt
[2018-07-17 10:57] VITALS: BP 143/78
== END | disposition home or self-care (01) ==
LOC: PAIN 10:25
DX: M47.27 Other spondylosis with radiculopathy, lumbosacral region (principal); M12.88 Other specific arthropathies, not elsewhere classified, other specified site; G89.29 Other chronic pain; I10 Essential (primary) hypertension; E66.01 Morbid (severe) obesity due to excess calories; Z79.899 Other long term (current) drug therapy; Z68.42 Body mass index [BMI] 45.0-49.9, adult

== ENCOUNTER → 2018-08-07 | Outpatient (CLI) | payer OTHER ==
[~2018-08-07] VITALS: Ht 160 cm; Wt 116.9 kg
--- NOTE | ~2018-08-07 | HPC ---
[facility] [address] [place] [address] PAIN MANAGEMENT CONSULTATION Name: GI PRATT Room #: REG [facility].#: [id number] Admission: 08/07/18 Attend Phys: Bairon Edwards DO Discharge: Date of : 39 Report #: [id number] THIS REPORT FOR: //name// CC: Bairon Gee MD DATE OF SERVICE: 08/07/2018 REFERRING PHYSICIAN: Seymour Gee MD CHIEF COMPLAINT: Low back pain, bilateral lower extremity pain, right greater than left. HISTORY OF PRESENT ILLNESS: As you know, the patient is a 78-year-old female who returns today in followup visit with continued back pain, bilateral lower extremity pain, right greater than left. She reports good efficacy with the tramadol ER 100 mg dose once a day. She is denying side effects of sleepiness, disorientation, confusion, mental slowing or constipation with its use. She states that without the medication, she would not be able to go about her activities of daily living without significant pain interference. She is extremely pleased with the response to tramadol ER, returning to receive refills. ALLERGIES: No known drug allergies. CURRENT MEDICATIONS: Pantoprazole 40 mg once a day, tramadol ER 100 mg once a day, multivitamin 1 tab per day, perphenazine 4 mg once a day, ferrous sulfate 325 mg per day, sertraline 50 mg per day, atorvastatin 10 mg per day. SOCIAL HISTORY: The patient denies tobacco, alcohol, IV or illicit drug use. She is retired, retired years ago. She is unaccompanied today. PQRS: The patient has known osteoarthritic changes in the low back, bilateral hips and mildly in the knees. No rheumatoid arthritis. She is placing current pain score at about 0/10. She is not a fall risk, has not had a fall in the last 3 months. She is not on blood thinners. She reports she is not treated for hypertension, but is treated for dyslipidemia. She has been on tramadol for an extended period of time. She is at a moderate risk for opioid addiction. Pain impact tool indicates moderate interference at 39/70. PHYSICAL EXAMINATION: VITAL SIGNS: Blood pressure 162/75, pulse 71, respiratory rate 20 and unlabored. The patient is 97% on room air. Height 5 feet 3 inches tall, weight 257.8 pounds, BMI calculated 45.7. GENERAL: Well-developed, well-nourished, well-hydrated, class 3, [place] [address] PAIN MANAGEMENT CONSULTATION Name: GI PRATT Room #: REG [facility]#: [id number] Admission: 08/07/18 Attend Phys: Bairon Edwards DO Discharge: Date of : 39 Report #: [id number] 78-year-old female, appears her stated age, placing pain today at around 0/10. HEENT: Normocephalic, atraumatic. Pupils equal, round, reactive to light. Extraocular muscles are intact. Sclerae nonicteric without injection. NEUROLOGIC: Cranial nerves 2-12 grossly intact. Speech remains fluent. EXTREMITIES: Show no clubbing, no cyanosis, no edema. MUSCULOSKELETAL: Lower extremity strength is symmetrical 5/5. Deconditioning noted bilaterally. Seated straight leg raising negative. Supine straight leg raising mildly positive on the right. Rene's test negative. Gait mildly antalgic favoring right lower extremity. ASSESSMENT: 1. Symptomatic lumbar radiculopathy. 2. Lumbosacral spondylosis with radiculopathy. 3. Facet arthropathy of the lumbar spine. 4. Chronic intractable pain. 5. Essential hypertension. PLAN: 1. The patient returns today in followup visit requesting refill on medications. She feels medications are working beneficially for pain control. We have discussed with the patient the potential side effects of the tramadol and she does not endorse any side effects at this time. She feels medications are working beneficially allowing her to go about her activities of daily living without significant pain interference. She has requested refill of medication be provided as previous evaluations. 2. The patient was provided a prescription of tramadol ER 100 mg dose 1 tab per day, given #30 tablets with 5 refills, 6 months' worth of medication. We reviewed the fact that opiate medications are being used to provide analgesia adequate to support activities of daily living, not attempting to achieve a specific pain score on the 0-10 Visual Analog Scale. The current opiate medications are providing sufficient analgesia to allow the patient to participate in activities of daily living. The patient is not exhibiting any aberrant behavior suggestive of drug diversion. The patient is not having any adverse reactions to medications. The patient is not suffering from daytime somnolence or mental acuity changes. The patient is managing opiate-induced constipation with appropriate zsdz-zvz-vxaqvgh agents and dietary considerations. The patient was counseled on concern for caution with operating a motor vehicle while using opiate medications. A physical exam was performed and the patient's functional status was evaluated. All patients with back pain were advised against the bed rest greater than 4 days and were advised to return to normal activities. Pain score assessment was noted and the treatment plan was reviewed with the patient. All current medications, both prescribed and OTC were reviewed and reconciled on the electronic medical record. Tobacco screening was accomplished and smoking [address] [place] [address] PAIN MANAGEMENT CONSULTATION Name: GI PRATT Room #: REG [facility].#: [id number] Admission: 08/07/18 Attend Phys: Bairon Edwards DO Discharge: Date of : 39 Report #: [id number] cessation was advised when indicated. BMI was noted and diet/exercise modification was recommended for all patients following outside normal parameters. I reviewed with the patient today their responsibilities to safeguard prescription medications, reviewed their responsibility to utilize medications only as prescribed by the physician. They are to seek and receive pain medications only from 1 physician group ( [facility]). They are to use 1 pharmacy and keep the clinic informed if they change pharmacies. Their responsibilities include making followup visits in a timely fashion and to avoid abrupt discontinuation of medication usage. Their responsibilities further include bringing their medications (bottles from the pharmacy with residual pills) to the visit for possible confirmation of pill counts and the patient understands it is their responsibility to submit to random drug screens to ensure both that the medications prescribed are present, and that no other controlled substances are present. All prescriptions provided today were generated electronically. 3. The patient's blood pressure noted to be elevated today at 162/75. Previous blood pressure was 143/78. Prior to that visit, the patient's blood pressure was 131/63. It does appear that there has been a slow rise in her blood pressure. I recommend she follow up with her PCP in regards to essential hypertension and possible treatment options. We will defer to the primary team to make adjustments in her antihypertensive medications if warranted. 4. We will see the patient back in followup visit in 6 months for medication therapy, earlier for interventional treatments. By: [id number] Bairon Edwards DO /nt
[2018-08-07 09:52] VITALS: BP 162/75
== END ==
LOC: PAIN 09:25
DX: M47.27 Other spondylosis with radiculopathy, lumbosacral region (principal); G89.4 Chronic pain syndrome; I10 Essential (primary) hypertension; M12.88 Other specific arthropathies, not elsewhere classified, other specified site; Z79.899 Other long term (current) drug therapy

== ENCOUNTER → 2018-08-08 | Outpatient (CLI) | payer OTHER | LOC: RAD 01:19 | DX: Z12.31 Encounter for screening mammogram for malignant neoplasm of breast (principal) ==

== ENCOUNTER 2018-10-12 11:42 | Inpatient (IN) | payer OTHER ==
[~2018-10-12] VITALS: Ht 160 cm; Wt 112.6 kg
[2018-10-12] VITALS (12 sets, daily range): BP systolic 118–190; BP diastolic 46–76
--- NOTE | ~2018-10-12 | HPC ---
[facility] [place] [address] PAIN MANAGEMENT CONSULTATION Name: GI PRATT Room #: 420-P [facility] ..#: [id number] Admission: 10/12/18 ������������������ Attend Phys: Seymour Gee MD Discharge: 10/16/18 ������������������ Date of : 39 Report #: [id number] THIS REPORT FOR: //name// CC: Seymour Good DATE OF SERVICE: 10/16/2018 CHIEF COMPLAINT: Low back pain, right lower extremity pain and paresthesias. HISTORY OF PRESENT ILLNESS: As you know, the patient is a 78-year-old female who returns today in followup visit with recurrent right lower extremity pain and paresthesias. The patient is just now being released from the hospital where she was seen for encephalopathy of an unknown origin. She apparently spent some time in the ICU receiving high dose steroid exposure to reduce the inflammatory process causing her vertigo changes in vision and severe nausea. Apparently, the workup has been inconclusive. She continues to take high dose oral steroids in hopes of improving further symptoms. She returns today in followup visit with low back pain, right lower extremity pain for which she places pain score at 8/10. She states she cannot walk or go about activities of daily living due to her ongoing pain. She has been receiving anticoagulation therapy in the form of Lovenox, but the last dose was greater than 24 hours ago. She has returned today to discuss options for treatment. ALLERGIES: No known drug allergies. CURRENT MEDICATIONS: Prednisone 20 mg 2 tabs per day, diazepam 2 mg 3 times a day, Pacheco Back and Body 2 tabs per day, tramadol 50 mg 2 tabs 3 times a day, pantoprazole 40 mg per day, multivitamin 1 tab per day, perphenazine 4 mg p.r.n., ferrous sulfate 325 mg per day, sertraline 100 mg per day, atorvastatin 10 mg per day. SOCIAL HISTORY: The patient denies tobacco, alcohol, IV or illicit drug use. She is retired, retired years ago. She has just been released from the hospital for an encephalopathy with unknown origin. She is accompanied by her , present in the recovery room. PQRS: The patient has arthritic changes of the lumbar spine, bilateral hips and bilateral knees. No rheumatoid arthritis. She is placing current pain score at 8/10. She is a fall risk, but has not had a fall in the last 3 months. She was on anticoagulation during her hospitalization for encephalopathy of unknown origin. Last dose was 24 hours ago. She is not treated for hypertension. She is on chronic opioids and takes them consistently. She is at a moderate risk for opioid addiction. She is placing pain impact score at 39/70 indicating moderate interference of daily [place] [address] PAIN MANAGEMENT CONSULTATION Name: GI PRATT Room #: 420-P [facility] M.R.#: [id number] Admission: 10/12/18 ������������������ Attend Phys: Seymour Gee MD Discharge: 10/16/18 ������������������ Date of : 39 Report #: [id number] IMAGING: There is no new imaging of the lumbar spine. PHYSICAL EXAMINATION: VITAL SIGNS: Blood pressure 155/75, pulse 68, respiratory rate 20 and unlabored. The patient is 97% on room air. Height 5 feet 3 inches tall, weight 243 pounds, BMI calculated 47.5. GENERAL: Well-developed, well-nourished, well-hydrated, class 3, morbidly obese 78-year-old female, appears her stated age. She is in no acute distress, awake, alert and oriented x 3. Current pain score is 8/10. HEENT: Normocephalic, atraumatic. Pupils equal, round and reactive. There is noted left eye nystagmus, negative right. LUNGS: Clear, no wheeze, rhonchi or rales. CARDIOVASCULAR: No appreciable gallop, no rub. ABDOMEN: Soft. Severely obese. Bowel sounds are present. EXTREMITIES: Show no clubbing, no cyanosis. There is 1 to 2+ nonpitting lower extremity edema noted today. MUSCULOSKELETAL: Lower extremity strength is symmetrical at 5/5. She has giveaway strength noted on the right when compared to left due to pain, is mainly noted with knee extension. Seated straight leg raising negative. Supine straight leg raising positive on the right. MICHELLE test negative. Gait is severely antalgic favoring right lower extremity over left. Ankle clonus negative. Babinski is negative. ASSESSMENT: 1. Symptomatic lumbar radiculopathy. 2. Lumbosacral spondylosis with radiculopathy. 3. Facet arthropathy of the lumbar spine. 4. Class 3 morbid obesity. 5. Encephalopathy of unknown origin. 6. Essential hypertension. 7. Chronic intractable pain. PLAN: 1. The patient returns today in followup visit, having just been released from the hospital for encephalopathy of unknown origin. She remains at extremely high doses of steroid receiving 40 mg of steroid per day with plans to continue this medication to reduce the inflammation deemed to be the source of the patient's nausea, vertigo and vision changes. Interestingly, the patient continues to experience nystagmus of the left eye that was noted in physical exam today. This was one of the presenting symptoms that brought the patient to the hospital. She is to continue the medication provided as outpatient and followup with Dr. Gee next week. At this juncture, I would not recommend the patient undergo an elective epidural injection. She is on high dose steroids and if the steroids are going to have any effect from epidural standpoint, the oral steroids should also provide benefit. Would recommend that [facility] [address] PAIN MANAGEMENT CONSULTATION Name: GI PRATT Room #: 420-P [facility] ..#: [id number] Admission: 10/12/18 ������������������ Attend Phys: Seymour Gee MD Discharge: 10/16/18 ������������������ Date of : 39 Report #: [id number] we monitor the patient over the next week make sure that this encephalopathic issues do not recur as she will be discontinuing her steroid in the next couple of days. If no reoccurrence of symptoms, we will be more than willing to provide this elective procedure to address her ongoing pain issues. Of greater concern is the source of this encephalopathy and I do not wish to complicate the patient's case further with an elective procedure to assist in pain control. We have taken the liberty of providing the patient a return visit next week assuming she has no recurrence of her encephalopathic issues. 2. The patient indicates that the tramadol therapy provided here at [facility] was suboptimal. It comes to our attention the patient was receiving 50 mg dose of tramadol every 4-6 hours p.r.n. for pain. She typically takes 100 mg 3 times a day for baseline pain control. We have advised her to adjust back to her typical daily dosing at this time, utilize this medication over the next week. Again, if no encephalopathic features return, we would have the patient undergo an epidural injection next week. 3. We will see the patient in followup visit next week for a possible lumbar epidural injection under fluoroscopic guidance assuming no recurrence of the patient's encephalopathic issues. I am very concerned about the nystagmus noted in physical exam today. I have advised the patient that if her symptoms do continue or do not improve or she sees worsening of symptoms, she is to return to [facility] for further evaluation. ��������������������������������������������� ���������������������������������������� By: ��������������������������������������������� 0822 1202 Bairon Edwards DO /nt
[~2018-10-12 11:42] MED LIST changes: +ZOLOFT100 MG PO; -ZOLOFT50 MG PO
[2018-10-12 12:26] LABS: APTT 23.1 Seconds (24.5-32.8); PROTIME 10.8 Seconds (9.3-11.4)
[2018-10-12 12:31] LABS: BE(vivo) 1.4 mmol/L (-2 to +3); PCO2 46.6 mmHg (35.0-45.0); PO2 66.7 mmHg (80.0-100.0); pH 7.381 (7.360-7.450); sO2 92.8 % (92.0-98.0)
--- NOTE | 2018-10-12 13:58 | NUR ---
physician concerned of possible cerebellar stroke due to rotary nystagmus. However patient is outside of window for TPA so physician did not call a code stroke. However code stroke orderset was utilized for the scans.
[2018-10-12] MEDS ORDERED: TRAMADOL HCL E100 M1 PO (14:05)
[2018-10-12] MEDS ORDERED: BAYER BACK AND BODY PO (14:10)
[2018-10-12 14:18] LABS: URINE BILIRUBIN NEGATIVE (Negative); URINE BLOOD 1+ (Negative); URINE CLARITY CLEAR; URINE COLOR YELLOW; URINE GLUCOSE-RANDOM* NEGATIVE (Negative); URINE KETONES NEGATIVE (Negative); URINE LEUKOCYTES NEGATIVE (Negative); URINE NITRITE NEGATIVE (Negative); URINE PROTEIN (DIPSTICK) NEGATIVE (Negative); URINE UROBILINOGEN 0.2 E.U./dl (0.2-1.0)
[2018-10-12 14:33] LABS: AMORPHOUS PHOSPHATES Few /LPF (None Seen); BACTERIA None Seen /HPF (None Seen); CASTS None Seen /LPF (None Seen); SQUAMOUS 4-10 Moderate /LPF (0-3); URINE RBC 0-2 Rare /HPF (0-2); URINE WBC None Seen /HPF (0-5)
[2018-10-12 15:08] LABS: CALCIUM 9.6 mg/dL (8.5-10.1); CREATININE 0.8 mg/dL (0.6-1.0); POTASSIUM 3.6 mmol/L (3.5-5.1)
[2018-10-12 15:14] LABS: ALBUMIN 3.7 g/dL (3.4-5.0); TOTAL BILIRUBIN 0.3 mg/dL (<0.1-1.0); TOTAL PROTEIN 7.7 g/dL (6.4-8.2)
--- NOTE | 2018-10-12 18:46 | NUR ---
Patient admitted to room [address] of MRI. Alert and oriented. States that dizziness is slightly improved, especially with eyes closed and limited movement. Main complaint is lower back pain and right leg pain. No nystagmus noted to eyes upon arrival to ICU. Completed MRI as ordered. Updated and bedside. Continue to monitor.
[2018-10-13] VITALS (18 sets, daily range): BP systolic 118–156; BP diastolic 50–76
--- NOTE | 2018-10-13 05:38 | NUR ---
Client remains in the ICU post Vertigo episode and rule out of Stroke. Care assumen 10/12/18 @ 1900. Client is A/O x4 and has pain throughout their body. No present sign of edema at the moment and sinus rhythm per monitor. 2L/NC placcced per protocol for desat episodes during resting state. NPO w/sips of water for pain medication. Ortiz to DD, skin intact and client has PIV to L arm and PIV to L AC. Maint fluids infusing and client received a CT Scan and MRI which both were negative. Plan of Care is to figure about the Cerebral infarct a cause of symptoms which client in waiting to be seen by Neurologist. Please see [facility] for any additional questions/concerns.
--- NOTE | 2018-10-13 17:59 | NUR ---
PATIENT TRANSFERED TO MED/SURG UNIT VIA BED. WITH MOVEMENT SHE CONTINUES TO GET DIZZY, HOWEVER EXPRESSED THAT SHE FEELS BETTER THIS AFTERNOON. SHE HAS TAKEN IN GOOD ORAL INTAKE AND FOOD INTAKE TODAY. SHE HAS BEEN INTERMITTENTLY DROWSY. REPORT PRIOR TO HER TRANSFER WAS CALLED TO RN ON UNIT. PATIENT PROGRESSING TOWARDS PLAN OF CARE, WHICH IS TO INCREASE ACTIVITY WITH MINIMAL OR DECREASED VERTIGO AND NAUSEA.
--- NOTE | 2018-10-13 19:43 | NUR ---
Pt arrived per bed from icu in stable condition.Assessment completed.vss. Dinner given and well tolerated. at bs assisting with care.Report off to oli san.
--- NOTE | 2018-10-13 21:30 | NUR ---
ASSUMED CARE @ 19:45 IN BED CO DIZINESS AND VERTIGO WHEN LIGHTS ARE ON. C/O FISHMAN REQUESTS DIAZEPAM AND HYDROCODONE. FULL CODE. NG DRAINING CLEAR YELLOW URINE TO GRAVITY. VSS LUNGS CTA ALL ENAMORADO, HRRR, BOWEL SOUNDS NORMOACTIVE X4. MEDS PROVIDED FOR PAIN AND VERTIGO.
[2018-10-14 06:25] VITALS: BP 158/72
[2018-10-14 08:00] VITALS: BP 135/48
[2018-10-14] MEDS ORDERED: DIAZEPAM 2MG TAB2 MG PO (08:13)
[2018-10-14] MEDS ORDERED: PREDNISONE 20 M20 M1 PO (08:14)
[2018-10-14 16:00] VITALS: BP 134/59
--- NOTE | 2018-10-14 16:21 | NUR ---
Assumed pt care at 7am.Pt in bed resting and wanted to sit up in chair for breakfast.This rn called for help and pt was transfered with max assist and walker to chair.Assessment completed.Pt was emotionally labile and cried for every conversation made early this am.Dr Gee here,order noted.Tramadol increased to 100mg per pt request and given with breakfast.Complete relief noted.Later this am,Dr kramer here and postponed pt dc for tomorrow.Family here to visit and updates given.Pt feels comfortable sitting up in chair till after dinner.Will continue to monitor.
[2018-10-14 19:35] VITALS: BP 150/57
--- NOTE | 2018-10-14 21:53 | EKG ---
[address] [employer] [place] [address] ELECTROCARDIOGRAM REPORT Name: GI PRATT Room #: 420-P ADM IN M.R.#: [id number] ������������������ Admission: 10/12/18 ������������������ Attend Phys: Seymour Gee MD Discharge: ������������������ Date of : 39 Report #: [id number] ����������������������������������������������������������������� [id number] THIS REPORT FOR: //name// [facility] ED Test Date: 2018-10-12 Test Time: 11:44:04 Pat Name: GI PRATT Department: Room: 420 Gender: F Hvac Installer: VANDANA : 1940 Requested By: Sanjiv Larose Order Number: [id number] MD: Pilo Lam Measurements Intervals Marvell Rate: 59 P: 18 AR: 205 QRS: -20 QRSD: 115 T: 183 QT: 470 QTc: 466 Interpretive Statements Sinus rhythm Incomplete right bundle branch block Abnormal T, consider ischemia, lateral leads Compared to ECG 07/02/2017 05:52:22 Incomplete right bundle-branch block now present Possible ischemia now present T-wave abnormality still present Electronically Signed On 10-14-2018 21:53:05 [facility] EPIDEMIOLOGIST by Pilo Lam [email or web address] ��������������������������������������������� <ELECTRONICALLY SIGNED> ���������������������������������������� By: Pilo Lam MD ��������������������������������������������� 10/14/18 2153 [id number] 1144 Pilo Lam MD /EPI
[2018-10-15 06:00] VITALS: BP 141/65
[2018-10-15 07:48] VITALS: BP 143/64
--- NOTE | 2018-10-15 07:58 | NUR ---
ASSUMED CARE OF PT AT 0700. ASSESSMENT COMPLETED. A&O,X4. AM MEDS GIVEN ORDERED, PT REFUSED HOME MED AND REQUESTED TO TAKE IN AFTERNOON. C/O CHRONIC PAIN, PAIN MEDS GIVEN ORDERED. DENIES N/V/D. NO DIZZINESS AT THIS TIME. PT TRANSFERED FROM BED TO CHAIR WITH WALKER AND X1 ASSIST. WILL WAIT FOR P.T. TEST FOR SAFETY. PHYSICIAN AT BEDSIDE. PT IN STABLE CONDITION. DISCHARGE PENDING. WILL CONTINUE TO MONITOR.
--- NOTE | 2018-10-15 10:39 | NUR ---
INITIAL ASSESSMENT: Pt evaluated for d/c planning needs. Reviewed chart and spoke with nurse, PT and pt. Pt is alert and oriented. Pt lives in house with 82 year old spouse. Pt was independent with ADL's and did own laundry, cooking and housework. Pt has walker, but does not use. Pt had home health nursing about 3-4 years ago. Pt plans on returning home on d/c from hospital. Will remain available to assist as needed.
[2018-10-15 17:16] VITALS: BP 153/72
[2018-10-15 19:16] VITALS: BP 168/57
--- NOTE | 2018-10-15 19:52 | NUR ---
END OF SHIFT. NO CHANGE IN PT STATUS. P/T PASSED VERTIGO TEST TODAY. DISCHARGE ORDERS PENDING IF PATIENT CAN GO HOME SAFELY, PT STATES SHE CANNOT WALK. PHYSICIAN NOTIFIED. PLAN TO DISCHARGE TOMORROW AND VISIT OUTPATIENT PAIN CLINIC IN AM.
--- NOTE | 2018-10-16 00:07 | NUR ---
PT OBSERVED SITTING IN THE CHAIR AT THE START OF SHIFT. ASKED FOR A BATH. SHE WAS GIVEN ONE. DID VERY WELL TRANSFERRING TO SHOWER CHAIR.PT GIVEN TRAMADOL X1. PAIN REMAINS IN LOWER BACK, RADIATES TO RLE ESPECIALLY WITH MOVEMENT. AFEBRILE.PLAN FOR EPIDIURAL SOMETIME TOMORROW AFTER DISCHARGE. PT NOT C/O ANY DIZZINESS.NO FURTHER CONCERNS AT THIS TIME.WILL CONTINUE WITH POC TILL EOS.
[2018-10-16 04:59] VITALS: BP 146/76
[2018-10-16 07:57] VITALS: BP 146/76
[2018-10-16 08:00] VITALS: BP 152/78
--- NOTE | 2018-10-16 08:51 | NUR ---
ASSUMED CARE OF PT AT 0700. ASSESSMENT COMPLETED. A&O,X4. C/O CHRONIC BACK PAIN, PAIN MEDS GIVEN ORDERED. NO OTHER CONCERNS STATED. DENIES DIZZINESS AT THIS TIME. NG CATHETER REMOVED DURING PANTOMIMIST. PT UP IN THE CHAIR EATING BREAKFAST NOW.
--- NOTE | 2018-10-16 11:15 | NUR ---
NEW DISCHARGE ORDERS. DISCHARGE INFORMATION DISCUSSED WITH PT AND AT BEDSIDE, STATE NO QUESTIONS. NEW SCRIPTS AND CARENOTES GIVEN. HOME MEDS SENT WITH PT. BELONGINGS GATHERED AND SENT WITH PT. IV REMOVED, NO BLEEDING NOTED. PT LEFT VIA WHEELCHAIR AND WITH IN WHEELCHAIR AT 11:10 IN STABLE CONDITION TO HOME WITH HOME HEALTH. PT HAS OUTPATIENT APPOINTMENT AT PAIN CLINIC AT 12:15.
== END 2018-10-16 11:24 | disposition home or self-care (01) | DRG 149 ==
LOC: ER 11:42 → EROBS 14:58 → 4E 14:58 → ICU 16:20 → 4E 10-13 17:20 → ENTRNSPT 10-16 11:03 → EDTRNSPTSTS 10-16 11:05 → 4E 10-16 11:24
PROVIDERS: Emergency Medicine; ADMIT Family Medicine
DX: H83.09 Labyrinthitis, unspecified ear (principal); Z68.41 Body mass index [BMI] 40.0-44.9, adult; G93.40 Encephalopathy, unspecified; M47.26 Other spondylosis with radiculopathy, lumbar region; E66.01 Morbid (severe) obesity due to excess calories; E78.5 Hyperlipidemia, unspecified; M79.604 Pain in right leg; I10 Essential (primary) hypertension; Z90.49 Acquired absence of other specified parts of digestive tract; Z79.899 Other long term (current) drug therapy; Z82.49 Family history of ischemic heart disease and other diseases of the circulatory system
CPT/HCPCS: 10078; 10783

== ENCOUNTER → 2018-10-16 | Outpatient (CLI) | payer OTHER ==
[~2018-10-16] VITALS: Ht 160 cm; Wt 110.2 kg
[~2018-10-16] MED LIST changes: +BAYER BACK AND BODY PO; +DIAZEPAM 2MG TAB2 MG PO; +PREDNISONE 20 M20 M1 PO; +TRAMADOL HCL E100 M1 PO
[2018-10-16 11:27] VITALS: BP 155/75
--- NOTE | 2018-10-16 11:47 | NUR ---
Pain Clinic Assessment: 1. History of Osteoarthritis: Not Applicable hands History of Rheumatoid Arthritis: Not Applicable 2. Height: 5 ft. 3 in. 160.0 cm. Weight: 243.0 lb. oz. 110.224 kg. Patient's BMI: 47.5 3. Vital Signs: BP: 155/75 Pulse: 68 Resp: 20 Temp: 02 Sat: 97 ECG Mon: 4. Pain Intensity: 8 5. Fall Risk: Dizziness: Y Needs help standing or walking: N Fallen in the last 3 months: N Fall risk comments: 6. Patient on Blood Thinner: Enaxoparin (Lovenox) 7. History of Hypertension: N 8. Opioid Therapy greater than 6 weeks: N Opiate Contract Signed: 9. Risk Assessment Tool Provided: MOD RISK 4 10. Functional Assessment Tool: 11. Recreational Drug Use: Never Drug Type: Tobacco Use: Never Smoker Tobacco Type: Amount or Packs/day: How Many Years: Alcohol Use: No Frequency: Quant:
== END ==
LOC: PAIN 06:55
DX: M54.5 Low back pain (principal); G89.29 Other chronic pain; M79.604 Pain in right leg; Z79.899 Other long term (current) drug therapy

== ENCOUNTER → 2018-12-05 | Outpatient (CLI) | payer OTHER ==
[~2018-12-05] VITALS: Ht 160 cm; Wt 115.7 kg
[2018-12-05 09:36] VITALS: BP 157/82
--- NOTE | 2018-12-05 09:52 | NUR ---
Pain Clinic Assessment: 1. History of Osteoarthritis: Not Applicable hands History of Rheumatoid Arthritis: Not Applicable 2. Height: 5 ft. 3 in. 160.0 cm. Weight: 255.0 lb. oz. 115.668 kg. Patient's BMI: 45.2 3. Vital Signs: BP: 157/82 Pulse: 73 Resp: 16 Temp: 02 Sat: 97 ECG Mon: 4. Pain Intensity: 10 5. Fall Risk: Dizziness: N Needs help standing or walking: N Fallen in the last 3 months: N Fall risk comments: 6. Patient on Blood Thinner: None 7. History of Hypertension: N 8. Opioid Therapy greater than 6 weeks: N Opiate Contract Signed: 9. Risk Assessment Tool Provided: MOD RISK 4 10. Functional Assessment Tool: 11. Recreational Drug Use: Never Drug Type: Tobacco Use: Never Smoker Tobacco Type: Amount or Packs/day: How Many Years: Alcohol Use: No Frequency: Quant:
== END | disposition home or self-care (01) ==
LOC: PAIN 10-24 15:14
DX: M54.16 Radiculopathy, lumbar region (principal); G89.29 Other chronic pain; Z79.899 Other long term (current) drug therapy; Z87.19 Personal history of other diseases of the digestive system

== ENCOUNTER → 2019-02-12 | Outpatient (CLI) | payer OTHER ==
[~2019-02-12] VITALS: Ht 160 cm; Wt 115.3 kg
[~2019-02-12] MED LIST changes: +TRAMADOL HCL100 MG PO
[2019-02-12 08:09] VITALS: BP 154/86
--- NOTE | 2019-02-12 08:21 | NUR ---
Pain Clinic Assessment: 1. History of Osteoarthritis: Not Applicable hands History of Rheumatoid Arthritis: Not Applicable 2. Height: 5 ft. 3 in. 160.0 cm. Weight: 254.2 lb. oz. 115.305 kg. Patient's BMI: 45.0 3. Vital Signs: BP: 154/86 Pulse: 72 Resp: 20 Temp: 02 Sat: 97 ECG Mon: 4. Pain Intensity: 0-1 post med 5. Fall Risk: Dizziness: N Needs help standing or walking: N Fallen in the last 3 months: N Fall risk comments: 6. Patient on Blood Thinner: None 7. History of Hypertension: N 8. Opioid Therapy greater than 6 weeks: N Opiate Contract Signed: 9. Risk Assessment Tool Provided: MOD RISK 4 10. Functional Assessment Tool: 39 11. Recreational Drug Use: Never Drug Type: Tobacco Use: Never Smoker Tobacco Type: Amount or Packs/day: How Many Years: Alcohol Use: No Frequency: Quant:
--- NOTE | 2019-02-12 13:50 | HPC ---
[facility] [address] [place] [address] PAIN MANAGEMENT CONSULTATION Name: GI PRATT Room #: REG [facility] Ivon.#: [id number] Admission: 02/12/19 ������������������ Attend Phys: Kirsty Ware Discharge: ������������������ Date of : 39 Report #: [id number] THIS REPORT FOR: //name// CC: Kirsty Ware Seymour Gee DATE OF SERVICE: 02/12/2019 CHIEF COMPLAINT: Low back pain and right lower extremity pain and paresthesias. HISTORY OF PRESENT ILLNESS: This is a very pleasant 78-year-old female who returns to the Pain Clinic today for refill of her medications that she uses to help treat her low back pain. She tells me that the epidural, she received in November was not as effective as it normally is. It only helped about 70% for 4-6 weeks. She tells me normally they do last longer than that. She rates her pain today at 0-1. She takes her medication in the morning, then rest for about an hour and then she tells me that she is good for the rest of the day, able to be very active and go about her daily activities with very minimal pain. So then her pain returns in the morning in her lower back, right leg and occasionally left hip of a deep achy, sharp pain. Today, she is complaining of some constipation. She tells me she recently changed her diet. She thinks that is the cause not related to medication. She has had to take some kqru-kld-zxompcm stool softeners because of this but she tells me she is going to work on changing her diet again to try and decrease her constipation. She prefers not to take medicines for this. ALLERGIES: No known drug allergies. CURRENT MEDICATIONS: Pacheco Back and Body p.r.n., tramadol ER 100 mg daily, Protonix 40 mg daily, multivitamin daily, iron, Zoloft 100 mg daily and Lipitor 10 mg daily. PQRS: She has arthritic changes in her lumbar spine, bilateral hips and bilateral knees. Denies any rheumatoid arthritis. Height 5 feet 3 inches, weight 254 and BMI 45. Vital signs 154/86, pulse is 72, respirations 20 an oxygen sat is 97. Pain score 0-1. Fall risk, denies dizziness. She does not need help with walking or standing. Has not fallen in the last 3 months. She is not on any blood thinners or hypertension medicines. Opioid therapy is greater than 6 weeks; therefore an opioid signed contract be placed on the chart. Risk assessment tool is moderate. Functional assessment is 39/70. Her recreational drug use, she denies. She is not a smoker and does not drink alcohol. We did check the prescription monitoring system. The patient filling appropriately from her medications in a timely fashion. [facility] [address] [place] [address] PAIN MANAGEMENT CONSULTATION Name: GI PRATT Room #: REG CL Cali#: [id number] Admission: 02/12/19 ������������������ Attend Phys: Kirsty Ware Discharge: ������������������ Date of : 39 Report #: [id number] PHYSICAL EXAMINATION: GENERAL: This is a well-developed, well-nourished, well-hydrated class 3 morbidly obese 78-year-old female who appears her stated age, placing her current pain score at 0-1/10 today. HEENT: Normocephalic and atraumatic. Pupils equal, round and reactive to light. EXTREMITIES: Shows no clubbing, no cyanosis and no edema. MUSCULOSKELETAL: Lower extremity strength judged to be equal and symmetrical at 5/5. Seated straight raising is negative. Complains of tenderness across her lumbar spine. ASSESSMENT: 1. Symptomatic lumbar radiculopathy. 2. Lumbosacral spondylosis with radiculopathy. 3. Facet arthroscopy of the lumbar spine. 4. Class 3 morbidly obesity. 5. Encephalopathy of unknown origin. 6. Chronic intractable pain. We reviewed the fact that opiate medications are being used to provide analgesia adequate to support activities of daily living, not attempting to achieve a specific pain score on the 0-10 Visual Analog Scale. The current opiate medications are providing sufficient analgesia to allow the patient to participate in activities of daily living. The patient is not exhibiting any aberrant behavior suggestive of drug diversion. The patient is not having any adverse reactions to medications. The patient is not suffering from daytime somnolence or mental acuity changes. The patient is managing opiate-induced constipation with appropriate wgos-yml-xyputep agents and dietary considerations. The patient was counseled on concern for caution with operating a motor vehicle while using opiate medications. A physical exam was performed and the patient's functional status was evaluated. All patients with back pain were advised against the bed rest greater than 4 days and were advised to return to normal activities. Pain score assessment was noted and the treatment plan was reviewed with the patient. All current medications, both prescribed and OTC were reviewed and reconciled on the electronic medical record. Tobacco screening was accomplished and smoking cessation was advised when indicated. BMI was noted and diet/exercise modification was recommended for all patients following outside normal parameters. I reviewed with the patient today their responsibilities to safeguard prescription medications, reviewed their responsibility to utilize medications only as prescribed by the physician. They are to seek and receive pain medications only from 1 physician group ([facility]). They are to use 1 pharmacy and keep the clinic informed if they change pharmacies. Their [address] [place] [address] PAIN MANAGEMENT CONSULTATION Name: GI PRATT Room #: REG [facility].#: [id number] Admission: 02/12/19 ������������������ Attend Phys: Kirsty Ware Discharge: ������������������ Date of : 39 Report #: [id number] responsibilities include making followup visits in a timely fashion and to avoid abrupt discontinuation of medication usage. Their responsibilities further include bringing their medications (bottles from the pharmacy with residual pills) to the visit for possible confirmation of pill counts and the patient understands it is their responsibility to submit to random drug screens to ensure both that the medications prescribed are present, and that no other controlled substances are present. All prescriptions provided today were generated electronically. PLAN: 1. We discussed treatment options with the patient today. The patient tells me she is doing quite well with her current medication regimen and would like refills today. Scripts given for tramadol 100 mg #30 with 5 additional refills for a total of 6 months. This places the patient at the very low end of the CDC guidelines. 2. The patient will possibly return in the fall for another lumbar epidural steroid injection from Dr. Bairon Edwards. 3. Dr. Bairon Edwards did see the patient and collaborated care today. ��������������������������������������������� <ELECTRONICALLY SIGNED> ���������������������������������������� By: Kirsty Ware ��������������������������������������������� 02/12/19 1350 0850 [id number] Kirsty Ware /kelly
== END ==
LOC: PAIN 06:41
DX: M47.27 Other spondylosis with radiculopathy, lumbosacral region (principal); G93.40 Encephalopathy, unspecified; E66.9 Obesity, unspecified; G89.29 Other chronic pain; Z79.899 Other long term (current) drug therapy

== ENCOUNTER 2019-03-19 03:29 | Inpatient (IN) | payer OTHER ==
[~2019-03-19] VITALS: Ht 160 cm; Wt 115.7 kg
[2019-03-19 03:41] VITALS: BP 154/71
[2019-03-19 07:02] LABS: URINE BILIRUBIN NEGATIVE (Negative); URINE BLOOD NEGATIVE (Negative); URINE CLARITY CLEAR; URINE COLOR YELLOW; URINE GLUCOSE-RANDOM* NEGATIVE (Negative); URINE KETONES NEGATIVE (Negative); URINE LEUKOCYTES-REFLEX NEGATIVE (Negative); URINE NITRITE-REFLEX NEGATIVE (Negative); URINE PROTEIN (DIPSTICK) NEGATIVE (Negative); URINE SPECIFIC GRAVITY 1.015 (1.005-1.035); URINE UROBILINOGEN 0.2 E.U./dl (0.2-1.0)
[2019-03-19 07:10] LABS: ABSOLUTE NEUTROPHILS 2.7 thou/uL (1.4-8.2); BASOPHILS 1.1 % (0.0-2.0); EOSINOPHILS 3.4 % (0.0-3.0); HEMOGLOBIN 13.3 gm/dL (12.0-15.0); LYMPHOCYTES 33.2 % (24.0-44.0); MCH 30.6 pg (26.0-34.0); MCHC 33.1 g/dL (28.0-37.0); MCV 92.4 fL (80.0-100.0); MONOCYTES 9.2 % (1.0-8.0); PLATELET COUNT 304 thou/uL (150-400); POLYS 53.1 % (36.0-66.0); RBC 4.33 mil/uL (4.20-5.00); RDW 15.4 % (10.5-14.5)
[2019-03-19 07:16] LABS: CALCIUM 9.7 mg/dL (8.5-10.1); POTASSIUM 3.7 mmol/L (3.5-5.1)
[2019-03-19 07:29] LABS: ALBUMIN 3.5 g/dL (3.4-5.0); TOTAL BILIRUBIN 0.4 mg/dL (<0.1-1.0); TOTAL PROTEIN 7.9 g/dL (6.4-8.2)
[2019-03-19 07:34] VITALS: BP 149/73
[2019-03-19 08:11] VITALS: BP 154/61
[2019-03-19 08:23] VITALS: BP 155/77
--- NOTE | 2019-03-19 10:09 | NUR ---
INITIAL ASSESSMENT: Pt evaluated for d/c planning needs. Reviewed chart and spoke with nurse and pt. Pt is alert and oriented. Pt lives in house with spouse and was independent with ADL's prior to admission. Pt uses no DME and said she had home health in September, but does not recall name of agency. Pt plans on returning home on d/c from hospital. Will remain available to assist as needed.
--- NOTE | 2019-03-19 12:02 | NUR ---
79 YO FEMALE ADMITTED TO 420 BY CART FROM ER. A&OX4, IV INTACT INFUSING NS IN L FA. PT IS NOT AMBULATING SELF AT THIS TIME D/T PAIN AND WEAKNESS. SPOUSE AT THE BEDSIDE. EXTERNAL CATH PLACED FOR DRYNESS. [facility] IN SECURITY PER PT REQUEST. ORIENTED PT TO ROOM/CALL LIGHT. WILL CONT POC.
[2019-03-19 15:34] VITALS: BP 149/75
[2019-03-19 21:49] VITALS: BP 159/69
--- NOTE | 2019-03-20 05:20 | NUR ---
PATIENT IS SLOWLY ADVANCING IN HER CARE PLAN. VITAL SIGNS STABLE WITH PATIENT HAVING NO COMPLAINTS OF NAUSEA. PATIENT DID COMPLAIN OF PAIN FREQUENTLY IN LEGS AND HEADACHE WHICH WAS SUCCESSFULLY TREATED THROUGH PRN MEDICATIONS. FULLY ORIENTED, PATIENT WAS ABLE TO PARTICIPATE IN CARE AND CALL APPROPRIATELY FOR REQUESTS. BREATHING STABLE EVIDENCED BY SPOT OXYGENATION CHECKS. PATIENT WAS UP MULTIPLE TIMES TO BATHROOM WITH ASSISTANCE INCIDENT FREE. PATIENT DID HAVE BOWEL MOVEMENT DURING SHIFT. CONTINUE PLAN OF CARE.
[2019-03-20 05:21] VITALS: BP 169/64
[2019-03-20 05:55] VITALS: BP 128/74
[2019-03-20 07:29] VITALS: BP 165/76
--- NOTE | 2019-03-20 07:55 | EKG ---
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 : 1940 Requested By: Teofilo Chen Order Number: [id number] MD: Kirit Lang Measurements Intervals [place] Rate: 60 P: 51 [place]: 224 QRS: -26 QRSD: 95 T: 38 QT: 453 QTc: 453 Interpretive Statements Sinus rhythm Prolonged [place] interval Borderline left axis deviation Borderline T wave abnormalities Compared to ECG 10/12/2018 11:44:04 No significant change was found Electronically Signed On 03-20-2019 7:55:16 CDT by Kirit Lang [email or web address] <ELECTRONICALLY SIGNED> By: Kirit Lang MD, [facility] 03/20/19 [phone] Kirit Lang MD, [facility] /EPI
--- NOTE | 2019-03-20 15:21 | NUR ---
PT A&OX4, IV INTACT IN R AC. AMBULATES WITH STANDBY ASSIST AND WALKER. CALLS APPROP. FOR ASSIST. C/O CHRONIC PAIN TO BILAT. LOWER EXTREM., CALL LIGHT W/I REACH WILL CONT POC.
[2019-03-20 15:50] VITALS: BP 165/76
[2019-03-20 16:26] VITALS: BP 145/66
[2019-03-20 21:33] VITALS: BP 170/68
[2019-03-21 04:00] VITALS: BP 139/68
[2019-03-21 04:51] VITALS: BP 139/68
--- NOTE | 2019-03-21 06:23 | NUR ---
RESTED GOOD AFTER ABLE TO FIND A COMFORTABLE POSITION IN BED WHICH IS PRONE LYING POSITION, AMBULATING TO THE BATHROOM, VOIDING WITH NO ISSUES, GAIT SLOW USING ROLLER WALKER WITH STANDBY ASSIST. REFUSED PAIN MEDS ALL SHIFT, SAID PAIN IS CONTROLLED, NO SOB NOTED, VSS, MONITORED.
[2019-03-21 07:44] VITALS: BP 143/66
--- NOTE | 2019-03-21 08:07 | NUR ---
Pt assessed d/t BMI >40. BMI = 45.2 kg/m2 (high risk, class III obesity). Pt has lost 10-13# over the last 1-2 yrs. Weighed 264# 2 yrs ago per 12/12/16 and pt reports weighing 251# recently at the doctor. Admitted for intractable L sided pain. Diabetes is well controlled. BG 86 yesterday. Pt states she was even taken off DM med metformin. Has reduced carb portions at home and does a lot of reading/research. She tends to lean more towards hypoglycemia. Educated on helpful, preventative tips, encouraging eating q 2-3 hrs and choosing protein sources to pair w/ meals and snacks. Remains low nutrition risk. Pt had no further nutrition questions or education needs.
--- NOTE | 2019-03-21 10:02 | NUR ---
DISCHARGE PLANNING. PATIENT DISCHARGING TO HOME, HOME HEALTH SERVICES RECOMMENDED. REFERRAL FAXED TO [facility] FOR PATIENTS HH NEEDS, VERIFIED REFERRAL RECEIVED. PATIENT ALSO IN NEED OF ROLLER WALKER FOR HOME. RX FOR ROLLER WALKER OBTAINED FROM PCP. [facility] TO DELIVER ROLLER WALKER TO BEDSIDE PRIOR TO PATIENTS DISCHARGE. FOLLOWING TO ASSIST WITH DISCHARGE.
--- NOTE | 2019-03-21 10:19 | NUR ---
DISCHARGE NOTE: SW reviewed chart and spoke with nursing. Pt with discharge orders to go home today with HH and roller walker. SW met with pt at bedside to discuss discharge. Pt is aware and in agreement with discharge plan. Options for HH agencies and DME companies provided. No preference voiced. SW confirmed pt's home address and phone number. development planner sent referral to [facility]. SW notified [facility] liaison of need for walker. Script obtained for walker. Choice of Vendor Form signed and placed on pt's chart. [facility] liaison to deliver roller walker to pt this morning. Contact info for [facility] and [facility] placed in pt's discharge. Pt's family will provide transportation home. No additional SW needs identified at this time, but is available to assist should needs arise.
[2019-03-21 12:02] VITALS: BP 165/76
== END 2019-03-21 13:38 | disposition home health service (06) | DRG 554 ==
LOC: ER 03:29 → EROBS 06:49 → 4E 06:49 → ENTRNSPT 03-21 12:07 → EDTRNSPTSTS 03-21 12:09 → 4E 03-21 13:38
PROVIDERS: Emergency Medicine; ADMIT Family Medicine
DX: M16.12 Unilateral primary osteoarthritis, left hip (principal); Z68.42 Body mass index [BMI] 45.0-49.9, adult; M25.551 Pain in right hip; M54.9 Dorsalgia, unspecified; M79.604 Pain in right leg; G89.29 Other chronic pain; E78.5 Hyperlipidemia, unspecified; E66.01 Morbid (severe) obesity due to excess calories; M19.90 Unspecified osteoarthritis, unspecified site; Z90.49 Acquired absence of other specified parts of digestive tract; Z88.6 Allergy status to analgesic agent; Z82.49 Family history of ischemic heart disease and other diseases of the circulatory system
CPT/HCPCS: 10084

== ENCOUNTER → 2019-05-07 | Outpatient (CLI) | payer OTHER ==
[~2019-05-07] VITALS: Ht 160 cm; Wt 110.2 kg
--- NOTE | ~2019-05-07 | HPC ---
[facility] [address] [place] [address] PAIN MANAGEMENT CONSULTATION Name: GI PRATT Room #: REG [facility].#: [id number] Admission: 05/07/19 ������������������ Attend Phys: Bairon Edwards DO Discharge: ������������������ Date of : 38 Report #: [id number] THIS REPORT FOR: //name// CC: Bairon Gee MD DATE OF SERVICE: 05/07/2019 REFERRING PHYSICIAN: Seymour Gee MD CHIEF COMPLAINT: Low back pain, right lower extremity pain and paresthesias. HISTORY OF PRESENT ILLNESS: As you know, the patient is a very pleasant 79-year-old female returning in followup visit to undergo next in the series of lumbar epidural injections under fluoroscopic guidance. The patient reports improvement in symptoms with previous treatment options including the epidural injection provided in 11/2018, which gave about 60%-70% improvement in overall pain. She returns today in followup visit to undergo next in the series of epidural injections. She denies new injury or trauma that may have led to symptom reoccurrence. ALLERGIES: No known drug allergies. CURRENT MEDICATIONS: Tramadol ER 150 mg daily, Protonix 40 mg per day, multivitamin 1 tablet per day, iron supplement 1 tablet per day, Zoloft 100 mg per day, Lipitor 10 mg per day. SOCIAL HISTORY: The patient denies tobacco, alcohol, IV or illicit drug use. She is unaccompanied today. IMAGING: No new imaging available. PQRS: The patient has known arthritic changes of the lumbar spine, bilateral hips, bilateral knees and hands. No rheumatoid arthritis. She is placing pain intensity at 10/10, not a fall risk, has not had a fall in last 3 months. She is not on blood thinners, not treated for hypertension. She is not on chronic opioids. She does have a moderate risk of opioid addiction, placing pain impact score at 39/70, moderate interference of daily activities secondary to pain. PHYSICAL EXAMINATION: VITAL SIGNS: Blood pressure 148/59, pulse 72 and respiratory rate 18 and unlabored. The patient is 97% on room air. Height 5 feet 3 inches tall, weight 243 pounds, BMI calculated 43.1. GENERAL: Well-developed, well-nourished, well-hydrated, class 3, morbidly obese 79-year-old female appearing stated age, pain is rated around 10/10. [place] [address] PAIN MANAGEMENT CONSULTATION Name: GI PRATT Room #: REG [facility]#: [id number] Admission: 05/07/19 ������������������ Attend Phys: Baiorn Edwards DO Discharge: ������������������ Date of : 38 Report #: [id number] HEENT: Normocephalic, atraumatic. Pupils equal, round, reactive to light. EXTREMITIES: Show no clubbing, no cyanosis, and no edema. MUSCULOSKELETAL: Lower extremity strength equal and symmetrical, 5/5. Deconditioning noted bilaterally. Tenderness to palpation across the lumbar spine. Seated straight leg raising negative. Supine straight leg raising equivocal. ASSESSMENT: 1. Symptomatic lumbar radiculopathy. 2. Lumbosacral spondylosis with radiculopathy. 3. Facet arthropathy of the lumbar spine. 4. Class 3 morbid obesity. 5. Chronic intractable pain. PLAN: 1. The patient returns today in followup visit to undergo next in the series of epidural injections under fluoroscopic guidance. The patient has reported good efficacy with previous epidural injection up to 70% improvement in overall pain. She returns today in followup visit to undergo next in the series. She has been advised risks and benefits of the procedure, states understood and wished to proceed. 2. No medication changes made at today's visit. The patient will continue current medical therapy as previously prescribed. 3. We will see the patient back in followup visit on an as needed basis for possible next in the series of lumbar epidural injections. PROCEDURE NOTE DESCRIPTION OF PROCEDURE: L5-S1 interlaminar epidural steroid injection under fluoroscopic guidance. After obtaining written consent, the patient was taken back to fluoroscopy suite, placed in prone position with pillow under abdomen to decrease lumbar lordosis. Skin overlying lumbosacral area was then prepped and draped in aseptic fashion. Lumbar intervertebral spaces were identified by AP fluoroscopy. Skin and subcutaneous tissue overlying target site injection anesthetized with 3 mL of 1% lidocaine. A 20-gauge 4-1/2 inch Tuohy needle advanced under fluoroscopic guidance towards the epidural space using a midline approach. Epidural space identified using loss of resistance to air technique. After negative aspiration for heme or cerebrospinal fluid, 1 mL of Isovue injected. Lumbar epidurogram confirmed using both AP and lateral fluoroscopy. After negative aspiration for heme or cerebrospinal fluid, 5 mL of a solution containing 2 mL 40 mg per mL, 80 mg total triamcinolone along with 3 mL of 1% lidocaine injected slowly. Needle then retracted intermediate, flushed with 1 mL of 1% lidocaine and then removed. [facility] [address] [place] [address] PAIN MANAGEMENT CONSULTATION Name: GI PRATT Room #: REG [facility] Clai#: [id number] Admission: 05/07/19 ������������������ Attend Phys: Bairon Edwards DO Discharge: ������������������ Date of : 38 Report #: [id number] Sterile bandage placed over injection site. No new motor deficits present in the lower extremities following procedure. The patient tolerated procedure well, carefully escorted to recovery room in stable condition. No apparent complication. After meeting discharge criteria, the patient discharged home. ��������������������������������������������� ���������������������������������������� By: ��������������������������������������������� 1251 2249 Bairon Edwards DO /nt
[2019-05-07 09:49] VITALS: BP 148/59
--- NOTE | 2019-05-07 09:50 | NUR ---
Pain Clinic Assessment: 1. History of Osteoarthritis: hands History of Rheumatoid Arthritis: Not Applicable 2. Height: 5 ft. 3 in. 160.0 cm. Weight: 243.0 lb. oz. 110.224 kg. Patient's BMI: 43.1 3. Vital Signs: BP: 148/59 Pulse: 72 Resp: 18 Temp: 02 Sat: 97 ECG Mon: 4. Pain Intensity: 10 5. Fall Risk: Dizziness: N Needs help standing or walking: N Fallen in the last 3 months: N Fall risk comments: 6. Patient on Blood Thinner: None 7. History of Hypertension: N 8. Opioid Therapy greater than 6 weeks: N Opiate Contract Signed: 9. Risk Assessment Tool Provided: MOD RISK 4 10. Functional Assessment Tool: 39 11. Recreational Drug Use: Never Drug Type: Tobacco Use: Never Smoker Tobacco Type: Amount or Packs/day: How Many Years: Alcohol Use: No Frequency: Quant:
== END | disposition home or self-care (01) ==
LOC: PAIN 06:46
DX: M47.27 Other spondylosis with radiculopathy, lumbosacral region (principal); M47.26 Other spondylosis with radiculopathy, lumbar region; G89.29 Other chronic pain; E66.01 Morbid (severe) obesity due to excess calories; M19.90 Unspecified osteoarthritis, unspecified site; Z68.41 Body mass index [BMI] 40.0-44.9, adult; Z79.899 Other long term (current) drug therapy; Z98.890 Other specified postprocedural states; Z88.6 Allergy status to analgesic agent

== ENCOUNTER → 2019-08-07 | Outpatient (CLI) | payer OTHER ==
[~2019-08-07] VITALS: Ht 160 cm; Wt 110.3 kg
[~2019-08-07] MED LIST changes: +BACK & BODY PA1 EACH PO
[2019-08-07 08:18] VITALS: BP 159/79
--- NOTE | 2019-08-07 08:32 | NUR ---
Pain Clinic Assessment: 1. History of Osteoarthritis: B/L HANDS LEFT KNEE History of Rheumatoid Arthritis: Not Applicable 2. Height: 5 ft. 3 in. 160.0 cm. Weight: 243.2 lb. oz. 110.315 kg. Patient's BMI: 43.1 3. Vital Signs: BP: 159/79 Pulse: 77 Resp: 20 Temp: 02 Sat: 97 ECG Mon: 4. Pain Intensity: 3-CURRENTLY 5. Fall Risk: Dizziness: N Needs help standing or walking: Y Fallen in the last 3 months: N Fall risk comments: 6. Patient on Blood Thinner: None 7. History of Hypertension: N 8. Opioid Therapy greater than 6 weeks: N Opiate Contract Signed: 9. Risk Assessment Tool Provided: MOD RISK 4 10. Functional Assessment Tool: 39 11. Recreational Drug Use: Never Drug Type: Tobacco Use: Never Smoker Tobacco Type: Amount or Packs/day: How Many Years: Alcohol Use: No Frequency: Quant:
--- NOTE | 2019-08-08 08:28 | HPC ---
[facility] [address] [place] [address] PAIN MANAGEMENT CONSULTATION Name: GI PRATT Room #: REG [facility] Ivon.#: [id number] Admission: 08/07/19 Attend Phys: Kirsty Ware Discharge: Date of : 39 Report #: [id number] THIS REPORT FOR: //name// CC: Kirsty Boyle MD DATE OF SERVICE: 08/07/2019 CHIEF COMPLAINT: Low back pain, right lower extremity pain and paresthesias, left knee pain. HISTORY OF PRESENT ILLNESS: This is a very pleasant 79-year-old female who returns to the pain clinic today for refill of her medications for her ongoing low back pain and radiculopathy that travels down her right leg to her calf. She is reporting that she has been having some left foot pain as well. She had been seeing a digital sales executive and has been treated for that that has been also bothering her left knee. She feels that that is related to her arthritis, but she feels the pain medicine is helping control the majority of her pain. Dr. Seymour Gee did give her a script for tramadol 50 mg that the patient takes very sparingly if she has some additional pain that is not controlled by her tramadol 100 mg tablets. The patient reports her pain score 3/10 today, it is worse in the morning and lying down. Medication and as well as she keeps active, it is helpful. The patient does complain of some constipation today. This is a fairly new problem for her she reports and she denies any problems of daytime dizziness or overmedication, medicated filling from the medications. ALLERGIES: CODEINE. CURRENT LIST OF MEDICATIONS: Back and body pain reliever, tramadol 50 mg p.r.n., perphenazine 4 mg b.i.d., tramadol 100 mg ER daily, Protonix, multivitamin, iron, Zoloft and atorvastatin 10 mg. PQRS: 1. She has osteoarthritis in her hands and knees. Denies any rheumatoid arthritis. 2. Height is 5 feet 3 inches, weight is 243, BMI is 43. 3. Vital signs 159/79, pulse is 77, respirations 20, oxygen sat is 97. 4. Pain score is 3/10. 5. Denies dizziness. Does use a cane for walking, has not fallen in the last 3 months. 6. The patient is not on any blood thinners or medicine for hypertension. 7. Opiate therapy is greater than [address] [address] PAIN MANAGEMENT CONSULTATION Name: GI PRATT Room #: REG [facility]#: [id number] Admission: 08/07/19 Attend Phys: Kirsty Ware Discharge: Date of : 38 Report #: [id number] 8. Risk assessment tool is moderate. Functional assessment is 39/70. 9. Recreational drug use, she denies. She is not a smoker and does not drink alcohol. According to the prescription monitoring system, the patient is filling appropriately for her medications, filling them in a timely fashion. She is due to fill later this week. According to the CDC guidelines, her morphine milliequivalents are 10 a day. PHYSICAL EXAMINATION: GENERAL: This is a well-developed, well-nourished, well-hydrated, class 3, morbidly obese female appearing her stated age, placing her current pain score at 3/10 today. HEENT: Normocephalic, atraumatic. Extraocular eye muscles are intact. Mucous membranes are moist. EXTREMITIES: No clubbing, no cyanosis, no edema. MUSCULOSKELETAL: Lower extremity, tenderness is palpable across the lumbar spine. Seated straight leg raising is negative. She has lower extremity strength is equal and symmetrical at 5/5, but she is deconditioned noted bilaterally using a cane, does complain of some left knee tenderness today. ASSESSMENT: 1. Symptomatic lumbar radiculopathy. 2. Lumbosacral spondylosis with radiculopathy. 3. Facet arthroscopy of the lumbar spine. 4. Class III, morbidly obese. 5. Chronic intractable pain. 6. Scheduled medications under written agreement for pain. PLAN: 1. We discussed treatment options with the patient today. The patient finds the medications very beneficial allowing her to be as active and participate in her activities that she would like with sufficient analgesic from the medications. She does have some constipation issues that we were discussed regarding changing her diet or possible mjwr-qxl-[id number] medications, Benefiber or Colace were medicines that we discussed. The patient will attempt to change her diet and increase her water intake. 2. Scripts given for tramadol ER 100 mg, #30 with 5 additional refills. This is a 6-month supply that will be sent electronically by Dr. Bairon Edwards. 3. The patient will return in 6 months or as needed for epidurals which she does have periodically from Dr. Bairon Edwards, the last being in April that [address] [address] PAIN MANAGEMENT CONSULTATION Name: GI PRATT Room #: REG [facility]#: [id number] Admission: 08/07/19 Attend Phys: Kirsty Ware Discharge: Date of : 38 Report #: [id number] was beneficial in helping her low back pain. 4. The patient is seen in collaboration with Dr. Garvey. <ELECTRONICALLY SIGNED> By: Kirsty Ware 08/08/19 0828 [id number] [id number] Kirsty Ware /nt
== END ==
LOC: PAIN 06:52
DX: M47.27 Other spondylosis with radiculopathy, lumbosacral region (principal); M12.88 Other specific arthropathies, not elsewhere classified, other specified site; E66.09 Other obesity due to excess calories; G89.4 Chronic pain syndrome

== ENCOUNTER → 2019-09-04 | Outpatient (CLI) | payer OTHER | LOC: RAD 08-29 14:32 | DX: Z12.31 Encounter for screening mammogram for malignant neoplasm of breast (principal) ==

== ENCOUNTER → 2020-02-05 | Outpatient (CLI) | payer OTHER ==
[~2020-02-05] VITALS: Ht 160 cm; Wt 112.9 kg
[2020-02-05 13:34] VITALS: BP 154/90
--- NOTE | 2020-02-05 13:41 | NUR ---
Pain Clinic Assessment: 1. History of Osteoarthritis: B/L HANDS LEFT KNEE History of Rheumatoid Arthritis: Not Applicable 2. Height: 5 ft. 3 in. 160.0 cm. Weight: 249.0 lb. oz. 112.946 kg. Patient's BMI: 44.1 3. Vital Signs: BP: 154/90 Pulse: 82 Resp: 16 Temp: 02 Sat: 97 ECG Mon: 4. Pain Intensity: 3 5. Fall Risk: Dizziness: N Needs help standing or walking: N Fallen in the last 3 months: N Fall risk comments: 6. Patient on Blood Thinner: None 7. History of Hypertension: N 8. Opioid Therapy greater than 6 weeks: N Opiate Contract Signed: 9. Risk Assessment Tool Provided: LOW-2 10. Functional Assessment Tool: 11. Recreational Drug Use: Never Drug Type: Tobacco Use: Never Smoker Tobacco Type: Amount or Packs/day: How Many Years: Alcohol Use: No Frequency: Quant:
--- NOTE | 2020-02-06 09:03 | HPC ---
[facility] [address] [place] [address] PAIN MANAGEMENT CONSULTATION Name: GI PRATT Room #: REG [facility]..#: [id number] Admission: 02/05/20 Attend Phys: Kristy Ware Discharge: Date of : 38 Report #: [id number] THIS REPORT FOR: cc: Seymour Gee MD, Neal A. MD Hocker, Amanda CNS ~ CC: Kirsty Edwards DO DATE OF SERVICE: 02/05/2020 CHIEF COMPLAINT: Low back pain, right lower extremity pain and paresthesias. HISTORY OF PRESENT ILLNESS: This is a very pleasant 79-year-old female who returns to the pain clinic today for refill of her medications that she uses to help treat her ongoing pain. Today, she is reporting pain in her lower back that radiates down her right leg. She feels like she has numbness and tingling in her lower calf as well as ongoing shoulder pain. She is also developing some arthritic issues in her left wrist and knees. She has been using Aspercreme to these areas. Today, she is reporting a pain score at 3/10. Her pain is worse upon in the morning and any ambulation. She feels that movement as well as her medications are beneficial in helping reduce some of her pain. She denies any problems with constipation as long as she uses warm milk and honey and denies daytime somnolence. ALLERGIES: CODEINE. CURRENT LIST OF MEDICATIONS: Tramadol ER 100 mg daily and body pain reliever, tramadol 50 mg p.r.n., perphenazine 4 mg, Protonix, multivitamin, iron, and Zoloft. PQRS: 1. She has osteoarthritic changes in her lumbar spine, hips, knees and hands. Denies any rheumatoid arthritis. 2. Height is 5 feet 3 inches, weight is 249, BMI is 44. 3. Vital signs 154/90, pulse is 82, respirations 16, oxygen sat is 97. 4. Pain score is 3/10. 5. Denies dizziness, does not need help walking or standing, has not fallen in the last 3 months. 6. The patient is not on any blood thinners, but does not take medicine for hypertension. 7. Opioid therapy is greater than 6 weeks; therefore, an opioid signed contract is on the chart. Risk assessment is low. Functional assessment is . 8. Recreational drug use, she denies. She is not a smoker and does not drink alcohol. [address] [address] PAIN MANAGEMENT CONSULTATION Name: GI PRATT Room #: REG [facility]#: [id number] Admission: 02/05/20 Attend Phys: Kirsty Ware Discharge: Date of : 38 Report #: [id number] According to the prescription monitoring system, the patient is filling appropriately for her tramadol. She still does occasionally have tramadol [address] Gee averaging 1 prescription for 6 months. Her morphine mEq according to the CDC guidelines is less than 15 MMEs per day. PHYSICAL EXAMINATION: GENERAL: This is a well-developed, well-nourished class 3, morbidly obese 79-year-old female who appears her stated age, placing her current pain score at 3/10. HEENT: Normocephalic, atraumatic. Extraocular eye muscles are intact. She is wearing a mask. EXTREMITIES: No clubbing, no cyanosis, no edema. MUSCULOSKELETAL: Lower extremity strength is equal and symmetrical at 5/5. She is deconditioned noted bilaterally. She has tenderness that is palpable to the lumbosacral region. Seated straight leg raising is negative. She has tenderness over her joints of her left hand as well as her bilateral knees. ASSESSMENT: 1. Symptomatic lumbar radiculopathy. 2. Lumbosacral spondylosis with radiculopathy. 3. Facet arthroscopy of the lumbar spine. 4. Class 3 morbid obesity. 5. Osteoarthritis. 6. Chronic intractable pain. We reviewed the fact that opiate medications are being used to provide analgesia adequate to support activities of daily living, not attempting to achieve a specific pain score on the 0-10 Visual Analog Scale. The current opiate medications are providing sufficient analgesia to allow the patient to participate in activities of daily living. The patient is not exhibiting any aberrant behavior suggestive of drug diversion. The patient is not having any adverse reactions to medications. The patient is not suffering from daytime somnolence or mental acuity changes. The patient is managing opiate-induced constipation with appropriate wsgs-vqj-aojllnc agents and dietary considerations. The patient was counseled on concern for caution with operating a motor vehicle while using opiate medications. PLAN: 1. We discussed treatment options with the patient today. The patient believes that her arthritis has worsened. She has been using Aspercreme bjgg-qtv-tdxaghv to her hands and knees. I did explain to her that diclofenac gel has gone generic pkgb-vpr-cejrneh that she may try that medication. She has had issues with GI bleeds in the past, so she is unable to take oral anti-inflammatories. 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 2. We will send tramadol ER 100 mg, #30 with 5 additional refills for a total [facility] [address] [place] [address] PAIN MANAGEMENT CONSULTATION Name: GI PRATT Room #: REG [facility] [place]#: [id number] Admission: 02/05/20 Attend Phys: Kirsty Ware Discharge: Date of : 38 Report #: [id number] of [address] Bairon Edwards to her pharmacy. 3. We discussed epidural steroid injections that have been beneficial for the patient periodically. Her last one was performed in April. It did take several months before she noticed relief per her report. Currently, she is still feeling better that she will call as needed for another injection. 4. The patient is seen today in collaboration with Dr. Bairon Edwards. <ELECTRONICALLY SIGNED> By: Kirsty Ware 02/06/20 0903 [id number] [id number] Kirsty Ware /nt
== END ==
LOC: PAIN 06:49
PROVIDERS: ATTEND Clinical Nurse Specialist Adult Health
DX: M47.27 Other spondylosis with radiculopathy, lumbosacral region (principal); M17.0 Bilateral primary osteoarthritis of knee; M16.0 Bilateral primary osteoarthritis of hip; M19.042 Primary osteoarthritis, left hand; M19.041 Primary osteoarthritis, right hand; E66.01 Morbid (severe) obesity due to excess calories

== ENCOUNTER → 2020-08-07 | Outpatient (CLI) | payer OTHER ==
[~2020-08-07] VITALS: Ht 160 cm; Wt 112.1 kg
[~2020-08-07] MED LIST changes: +VOLTAREN GEL 1100 GM TOP
[2020-08-07 09:35] VITALS: BP 152/79
--- NOTE | 2020-08-07 09:52 | NUR ---
Pain Clinic Assessment: 1. History of Osteoarthritis: B/L HANDS LEFT KNEE History of Rheumatoid Arthritis: Not Applicable 2. Height: 5 ft. 3 in. 160.0 cm. Weight: 247.2 lb. oz. 112.129 kg. Patient's BMI: 43.8 3. Vital Signs: BP: 152/79 Pulse: 93 Resp: 20 Temp: 02 Sat: 96 ECG Mon: 4. Pain Intensity: 4 5. Fall Risk: Dizziness: N Needs help standing or walking: N Fallen in the last 3 months: N Fall risk comments: 6. Patient on Blood Thinner: None 7. History of Hypertension: N 8. Opioid Therapy greater than 6 weeks: N Opiate Contract Signed: 9. Risk Assessment Tool Provided: LOW-2 10. Functional Assessment Tool: 11. Recreational Drug Use: Never Drug Type: Tobacco Use: Never Smoker Tobacco Type: Amount or Packs/day: How Many Years: Alcohol Use: No Frequency: Quant:
--- NOTE | 2020-08-10 09:07 | HPC ---
[facility] [address] [place] [address] PAIN MANAGEMENT CONSULTATION Name: GI PRATT Room #: REG [facility] Ivon.#: [id number] Admission: 08/07/20 Attend Phys: Kirsty Ware Discharge: Date of : 39 Report #: [id number] THIS REPORT FOR: cc: Seymour Gee MD, Neal A. MD Hocker,Kirsty ARIZMENDI ~ DATE OF SERVICE: 08/07/2020 CHIEF COMPLAINT: Low back pain, lower extremity pain and paresthesias, right wrist pain. HISTORY OF PRESENT ILLNESS: This is a very pleasant 80-year-old female who returns today for refill of her tramadol medication. The patient does report it is very beneficial in helping control a significant portion of her pain that radiates from her low back down her legs bilaterally. The patient is stating her pain score is a 4/10 today. Most problematic is her right wrist. She believes she is having some arthritic issues and has been using Aspercreme as well as tmdc-gzo-eezgrfc Voltaren gel that we had discussed at her last visit. The patient, however, feels that it is fairly expensive and only utilizes it on as needed basis. The patient does report her pain is usually worse in the morning, but she tries to be as active as possible. Does use the stairs 2 perform her household work using due to the fact that her laundry is in the basement that does keep her very active and she cooks and cleans for herself as well. She denies any problems with constipation or daytime somnolence as a result of her medications. ALLERGIES: CODEINE. CURRENT LIST OF MEDICATIONS: Tramadol 100 mg ER daily back and body pain reliever, tramadol 50 mg p.r.n., perphenazine b.i.d., Protonix, multivitamin, iron, Zoloft, Voltaren gel, Aspercreme. PQRS: 1. She has arthritic changes in her spine, knees, hips and hands. Denies any rheumatoid arthritis. 2. Height is 5 feet 3 inches, weight is 247, BMI is 43. 3. Vital signs 157/79, pulse is 93, respirations 20, oxygen sat is 96%. 4. Pain score is 4/10. 5. Denies dizziness, does not need help walking or standing, has not fallen in the last 3 months. 6. The patient is not on any blood thinners or medicine for hypertension. 7. Opioid therapy is greater than 6 weeks. 8. Risk assessment is low. Functional assessment is 27/70. 9. Recreational drug use, she denies. She is not a smoker and does not drink alcohol. [address] [address] PAIN MANAGEMENT CONSULTATION Name: GI PRATT Room #: REG [facility] Leiva#: [id number] Admission: 08/07/20 Attend Phys: Kirsty Ware Discharge: Date of : 39 Report #: [id number] According to the prescription monitoring system, the patient is filling appropriately for her medications. She does have tramadol short acting that she fills from Dr. Gee and uses this on an as needed basis for increasing pain. PHYSICAL EXAMINATION: GENERAL: This is a well-developed, well-nourished class 3, morbidly obese 80-year-old female who appears her stated age, placing her current pain score at 4/10 today. She is a good historian. HEENT: Normocephalic, atraumatic. Extraocular eye muscles are intact. She is wearing a mask. EXTREMITIES: No clubbing, no cyanosis, no edema. Discomfort in her right wrist and thumb today. MUSCULOSKELETAL: Lower extremity strength is symmetrical at 5/5. She is deconditioned bilaterally. She has tenderness in her lumbosacral region that does radiate into her legs. Straight leg raising is negative. ASSESSMENT: 1. Symptomatic lumbar radiculopathy. 2. Lumbosacral spondylosis with radiculopathy. 3. Facet arthroscopy of the lumbar spine. 4. Class 3 morbidly obesity. 5. Osteoarthritis affecting multiple joints. 6. Chronic intractable pain. We reviewed the fact that opiate medications are being used to provide analgesia adequate to support activities of daily living, not attempting to achieve a specific pain score on the 0-10 Visual Analog Scale. The current opiate medications are providing sufficient analgesia to allow the patient to participate in activities of daily living. The patient is not exhibiting any aberrant behavior suggestive of drug diversion. The patient is not having any adverse reactions to medications. The patient is not suffering from daytime somnolence or mental acuity changes. The patient is managing opiate-induced constipation with appropriate hqjw-ylo-grvdldg agents and dietary considerations. The patient was counseled on concern for caution with operating a motor vehicle while using opiate medications. A physical exam was performed and the patient's functional status was evaluated. All patients with back pain were advised against the bed rest greater than 4 days and were advised to return to normal activities. Pain score assessment was noted and the treatment plan was reviewed with the patient. All current medications, both prescribed and OTC were reviewed and reconciled on the electronic medical record. Tobacco screening was accomplished and smoking cessation was advised when indicated. BMI was noted and diet/exercise modification was recommended for all patients following outside normal parameters. [address] [address] PAIN MANAGEMENT CONSULTATION Name: GI PRATT Room #: REG [facility]#: [id number] Admission: 08/07/20 Attend Phys: Kirsty Ware Discharge: Date of : 39 Report #: [id number] I reviewed with the patient today their responsibilities to safeguard prescription medications, reviewed their responsibility to utilize medications only as prescribed by the physician. They are to seek and receive pain medications only from 1 physician group ( [facility]). They are to use 1 pharmacy and keep the clinic informed if they change pharmacies. Their responsibilities include making followup visits in a timely fashion and to avoid abrupt discontinuation of medication usage. Their responsibilities further include bringing their medications (bottles from the pharmacy with residual pills) to the visit for possible confirmation of pill counts and the patient understands it is their responsibility to submit to random drug screens to ensure both that the medications prescribed are present, and that no other controlled substances are present. All prescriptions provided today were generated electronically. PLAN: 1. We discussed treatment options with the patient today. The patient does find her tramadol extended release very beneficial, occasionally needing a breakthrough tramadol for increasing pain, especially with weather changes or increase in activity. Dr. Gee does write her short acting medications. We will have Dr. Bairon Edwards send her long-acting tramadol, #30 with 5 additional refills for a total of 6 months to her pharmacy today. 2. We did discuss her ongoing osteoarthritic changes in her wrists, ankles and knees that become problematic with weather changes. She did try the Voltaren gel mleh-hmm-wettaqc that we have spoken at her last visit and found this beneficial, though only utilizing it once a day. I have encouraged the patient to increase her use to 3-4 times a day when her pain is increased. I will send a prescription for Voltaren gel 2 grams q.i.d. with 2 additional refills. 3. The patient will return in 6 months or as needed. The patient is seen today in collaboration with Dr. Bairon Edwards. <ELECTRONICALLY SIGNED> By: Kirsty Ware 08/10/20 0907 1020 1941 Kirsty Ware /nt
== END ==
LOC: PAIN 06:49
PROVIDERS: ATTEND Clinical Nurse Specialist Adult Health
DX: M51.16 Intervertebral disc disorders with radiculopathy, lumbar region (principal); M47.26 Other spondylosis with radiculopathy, lumbar region; M19.90 Unspecified osteoarthritis, unspecified site; G89.4 Chronic pain syndrome; Z79.891 Long term (current) use of opiate analgesic

== ENCOUNTER → 2021-02-03 | Outpatient (CLI) | payer OTHER, MEDICARE ==
[~2021-02-03] VITALS: Ht 152.4 cm; Wt 109.8 kg
[2021-02-03 08:57] VITALS: BP 164/78
--- NOTE | 2021-02-03 09:19 | NUR ---
Pain Clinic Assessment: 1. History of Osteoarthritis: B/L HANDS LEFT KNEE History of Rheumatoid Arthritis: Not Applicable 2. Height: 5 ft. 0 in. 152.4 cm. Weight: 242.0 lb. oz. 109.771 kg. Patient's BMI: 47.3 3. Vital Signs: BP: 164/78 Pulse: 74 Resp: 18 Temp: 02 Sat: 97 ECG Mon: 4. Pain Intensity: 3 5. Fall Risk: Dizziness: N Needs help standing or walking: Y Fallen in the last 3 months: N Fall risk comments: 6. Patient on Blood Thinner: None 7. History of Hypertension: N 8. Opioid Therapy greater than 6 weeks: N Opiate Contract Signed: 9. Risk Assessment Tool Provided: LOW-2 10. Functional Assessment Tool: 11. Recreational Drug Use: Never Drug Type: Tobacco Use: Never Smoker Tobacco Type: Amount or Packs/day: How Many Years: Alcohol Use: No Frequency: Quant:
--- NOTE | 2021-02-04 08:35 | HPC ---
[facility] [place] [address] [place] [address] PAIN MANAGEMENT CONSULTATION Name: GI PRATT Room #: REG [facility]..#: [id number] Admission: 02/03/21 Attend Phys: Kirsty Ware Discharge: Date of : 39 Report #: [id number] THIS REPORT FOR: cc: Seymour Gee MD, Neal A. MD Hocker, Amanda CNS ~ DOC #: [id number] cc: Seymour Gee MD, DO Kirsty Daniel, KAVYA DATE OF SERVICE: 02/03/2021 CHIEF COMPLAINT: Low back pain, left lower extremity pain and paresthesias, bilateral knee pain. HISTORY OF PRESENT ILLNESS: This is a very pleasant 80-year-old female who returns to the pain clinic today for renewal of her medications. She states that her pain is in the lower back, greater on the right side today and her bilateral knees. She describes her pain as a dull, aching, constant sensation that is worse in the mornings and with any movement. She states housework does increase her pain. Her pain score today is 3/10. Overall, she believes her tramadol extended release taking it in the morning and then taking breakthrough tramadol 50 mg tablets that she receives from Dr. Gee are beneficial in reducing her pain. The patient reports she has had both COVID vaccinations since we have last seen her. She does report that she had some side effects related to the injections that have resolved. ALLERGIES: CODEINE. CURRENT LIST OF MEDICATIONS: Tramadol 100 mg daily, diclofenac gel p.r.n., ____ body pain reliever p.r.n., tramadol 50 mg p.r.n., perphenazine daily, Protonix, multivitamin, iron, and sertraline. PQRS: 1. She has osteoarthritic issues in her hands and knees. Denies any rheumatoid arthritis. Height is 5 foot, weight is 242. BMI is 47. 2. Vital signs: Blood pressure 164/78, pulse is 74, respirations 18, oxygen sat is 97%. 3. Pain score is 3/10. 4. Denies dizziness, does need assistance with ambulation and uses a cane. 5. The patient has not fallen in the last 3 months. 6. The patient is not on any blood thinners or medications for hypertension. Opioid therapy is greater than 6 weeks; therefore, an opioid signed contract is on the chart. 7. Risk assessment is low. Functional [place] [address] PAIN MANAGEMENT CONSULTATION Name: GI PRATT Room #: REG [facility] Ivon.#: [id number] Admission: 02/03/21 Attend Phys: Kirsty Ware Discharge: Date of : 39 Report #: [id number] 8. Recreational drug use, she denies. She is not a smoker and does not drink alcohol. According to the prescription monitoring system, she is due to fill her medications today filling them in a timely fashion. Her morphine milliequivalent according to the CDC guidelines is 30 MME. She does fill appropriately from both her physicians. PHYSICAL EXAMINATION: GENERAL: This is alert and orientated, very pleasant, morbidly obese 80-year-old female who appears her stated age, rating her pain score today at 3/10. She is a good historian. HEENT: Normocephalic and atraumatic. Extraocular eye muscles are intact. She is wearing a mask. EXTREMITIES: No clubbing, no cyanosis, no edema. She does have some tenderness in her knees bilaterally. MUSCULOSKELETAL: Tenderness in the lumbosacral region that radiates into her legs. Straight leg raising is negative. Lower extremity strength is symmetrical at 5/5, though she does use a cane for ambulation. ASSESSMENT: 1. Symptomatic lumbar radiculopathy. 2. Lumbosacral spondylosis with radiculopathy. 3. Facet arthroscopy of the lumbar spine. 4. Class 3 morbid obesity. 5. Osteoarthritis affecting multiple joints. 6. Chronic intractable pain. 7. Complex medical management utilizing scheduled opioid medications. We reviewed the fact that opiate medications are being used to provide analgesia adequate to support activities of daily living, not attempting to achieve a specific pain score on the 0-10 Visual Analog Scale. The current opiate medications are providing sufficient analgesia to allow the patient to participate in activities of daily living. The patient is not exhibiting any aberrant behavior suggestive of drug diversion. The patient is not having any adverse reactions to medications. The patient is not suffering from daytime somnolence or mental acuity changes. The patient is managing opiate-induced constipation with appropriate qikf-dgq-bhtacqj agents and dietary considerations. The patient was counseled on concern for caution with operating a motor vehicle while using opiate medications PLAN: 1. We discussed treatment options with the patient today. The patient finds her tramadol, both extended release and short-acting beneficial in helping reduce her overall pain as well as utilizing Voltaren gel on as needed basis. Today, she would like renewals of her tramadol, which we will have Dr. Waddell [facility] [address] [place] [address] PAIN MANAGEMENT CONSULTATION Name: GI PRATT Room #: REG [facility]iva#: [id number] Admission: 02/03/21 Attend Phys: Kirsty Ware Discharge: Date of : 39 Report #: [id number] Jerry sent electronically 100 mg ER, #30 with 5 refills. This is a 6 month supply. She does twice a year for this medication. 2. The patient states she does not need Voltaren gel at this time. It is now rqyz-opa-anilvxv and she will look into the cost of buying it fhum-jvk-dnvdatd versus prescription with her copay. She will call when she needs a refill of this medication if it is too expensive lyar-cih-dgleipj for her. Time spent with the patient in consultation, reviewing her recent studies and clinical notes, and physician reports, physical examination and correlation of findings and medical documentation to determine possible treatments 12 minutes. Time spent and preparation for appointment reviewing and prescription monitoring reports, reviewing previous records and proposed treatment options, reviewing current medications 5 minutes. Time spent preparing and sending electronic prescriptions with collaborating physician, Dr. Bairon Edwards and documentation of visit and plan of treatment 5 minutes. Total time spent 22 minutes. KAVYA Murrieta/RAKESH <ELECTRONICALLY SIGNED> By: Kirsty Ware 02/04/21 0835 0845 20 Kirsty Ware /nt
== END ==
LOC: PAIN 06:52
PROVIDERS: ATTEND Clinical Nurse Specialist Adult Health
DX: M47.27 Other spondylosis with radiculopathy, lumbosacral region (principal); E66.01 Morbid (severe) obesity due to excess calories; M19.90 Unspecified osteoarthritis, unspecified site; G89.4 Chronic pain syndrome; Z79.891 Long term (current) use of opiate analgesic; Z79.899 Other long term (current) drug therapy

== ENCOUNTER → 2021-08-03 | Outpatient (CLI) | payer OTHER, MEDICARE ==
[~2021-08-03] VITALS: Ht 152.4 cm; Wt 108.0 kg
[2021-08-03 08:24] VITALS: BP 140/78
--- NOTE | 2021-08-03 08:36 | NUR ---
Pain Clinic Assessment: 1. History of Osteoarthritis: B/L HANDS LEFT KNEE History of Rheumatoid Arthritis: Not Applicable 2. Height: 5 ft. 0 in. 152.4 cm. Weight: 238.2 lb. oz. 108.047 kg. Patient's BMI: 46.5 3. Vital Signs: BP: 140/78 Pulse: 92 Resp: 20 Temp: 02 Sat: 96 ECG Mon: 4. Pain Intensity: 2 5. Fall Risk: Dizziness: N Needs help standing or walking: N Fallen in the last 3 months: N Fall risk comments: 6. Patient on Blood Thinner: None 7. History of Hypertension: N 8. Opioid Therapy greater than 6 weeks: N Opiate Contract Signed: 9. Risk Assessment Tool Provided: LOW-2 10. Functional Assessment Tool: 11. Recreational Drug Use: Never Drug Type: Tobacco Use: Never Smoker Tobacco Type: Amount or Packs/day: How Many Years: Alcohol Use: No Frequency: Quant:
--- NOTE | 2021-08-04 09:26 | HPC ---
[facility] [place] [address] PAIN MANAGEMENT CONSULTATION Name: GI PRATT [id number] Admission: 08/03/21 Attend Phys: Kirsty Ware Discharge: Date of : 39 Report #: [id number] THIS REPORT FOR: cc: Seymour Gee MD, Neal A. MD Hocker,Kirsty ARIZMENDI ~ cc: Seymour Gee MD, Bairon Edwards DO DATE OF SERVICE: 08/03/2021 CHIEF COMPLAINT: Low back pain, left lower extremity pain and paresthesias, bilateral knee pain. HISTORY OF PRESENT ILLNESS: A very pleasant 81-year-old female, who returns to the pain clinic for ongoing treatment. As you know, she continues to suffer from low back pain that radiates today into her right leg to her knee. Occasionally, she does have left leg pain as well. She describes her pain as a constant dull aching sensation that is worse first thing in the morning. She is grateful for the tramadol extended release medications, taking it first thing in the morning, and then within an hour, she reports significantly less pain. Her pain is worse with walking and movement as well, especially in her knees. She does take occasional tramadol short-acting medication that is provided by Dr. Gee. Today, she is reporting a pain score of 2/10 and would like renewals of this medicine. She denies any somnolence with her medications or constipation issues that is not relieved by skkb-wcb-tmiegvm medications. ALLERGIES: CODEINE. CURRENT LIST OF MEDICATIONS: Tramadol 100 mg ER daily, diclofenac gel p.r.n. back and body pain relieve, tramadol 50 mg p.r.n., perphenazine, Protonix, multivitamin, iron, Zoloft. PQRS: 1. She has osteoarthritis that affects her knees and hands. Denies rheumatoid arthritis. Height is 5 feet, weight is 238, BMI is 46.5. 2. Vital signs: Blood pressure 140/78, pulse is 92, respirations 20, oxygen sat is 96%. 3. Pain score is 2/10. 4. Denies dizziness, does not need help walking or standing, has not fallen in the last 3 months. 5. The patient is not on any blood thinners or medications for hypertension. Her opioid therapy is greater than 6 weeks; therefore, an opioid signed contract will be placed in the chart. 6. Risk assessment is low. Functional assessment is 27/70. Recreational drug use: She denies. She is not a smoker and does not drink alcohol. According to the prescription monitoring reports, she is filling appropriately [address] [address] PAIN MANAGEMENT CONSULTATION Name: GI PRATT Room #: REG [facility] Leiva#: [id number] Admission: 08/03/21 Attend Phys: Kirsty Ware Discharge: Date of : 39 Report #: [id number] for her medications. She is due to fill these today as her last prescription fill was 07/02. Her morphine mEq according to the CDC guidelines is less than 10. PHYSICAL EXAMINATION: GENERAL: This is alert and orientated, morbidly obese, pleasant 81-year-old female who appears her stated age, rating her pain score today at 2/10. HEENT: Normocephalic, atraumatic. Extraocular eye muscles are intact. She is wearing a mask for COVID precautions. EXTREMITIES: No clubbing, no cyanosis, no edema. Tenderness in her knees bilaterally, greater on the right than the left. MUSCULOSKELETAL: Tenderness in the lumbosacral region that does radiate into her legs, greater on the right. Negative straight leg raising on the right. Lower extremity strength is symmetrical at 5/5. She has a slightly antalgic gait and is not using any aid for ambulation today. ASSESSMENT: 1. Symptomatic lumbar radiculopathy. 2. Lumbar sacral spondylosis with radiculopathy. 3. Facet arthropathy of the lumbar spine. 4. Class 3, morbidly obesity. 5. Osteoarthritis affecting multiple joints. 6. Chronic intractable pain. 7. Complex medical management utilizing scheduled opioid medications. We reviewed the fact that opiate medications are being used to provide analgesia adequate to support activities of daily living, not attempting to achieve a specific pain score on the 0-10 Visual Analog Scale. The current opiate medications are providing sufficient analgesia to allow the patient to participate in activities of daily living. The patient is not exhibiting any aberrant behavior suggestive of drug diversion. The patient is not having any adverse reactions to medications. The patient is not suffering from daytime somnolence or mental acuity changes. The patient is managing opiate-induced constipation with appropriate ehdo-oct-zjcoiwh agents and dietary considerations. The patient was counseled on concern for caution with operating a motor vehicle while using opiate medications. A physical exam was performed and the patient's functional status was evaluated. All patients with back pain were advised against the bed rest greater than 4 days and were advised to return to normal activities. Pain score assessment was noted and the treatment plan was reviewed with the patient. All current medications, both prescribed and OTC were reviewed and reconciled on the electronic medical record. Tobacco screening was accomplished and smoking cessation was advised when indicated. BMI was noted and diet/exercise modification was recommended for all patients following outside normal parameters. [address] [place] [address] PAIN MANAGEMENT CONSULTATION Name: GI PRATT Room #: REG [facility] Ivon.#: [id number] Admission: 08/03/21 Attend Phys: Kirsty UGO Ware Discharge: Date of : 39 Report #: [id number] I reviewed with the patient today their responsibilities to safeguard prescription medications, reviewed their responsibility to utilize medications only as prescribed by the physician. They are to seek and receive pain medications only from 1 physician group ( [facility]). They are to use 1 pharmacy and keep the clinic informed if they change pharmacies. Their responsibilities include making followup visits in a timely fashion and to avoid abrupt discontinuation of medication usage. Their responsibilities further include bringing their medications (bottles from the pharmacy with residual pills) to the visit for possible confirmation of pill counts and the patient understands it is their responsibility to submit to random drug screens to ensure both that the medications prescribed are present, and that no other controlled substances are present. All prescriptions provided today were generated electronically. PLAN: 1. We discussed treatment options with the patient today. The patient finds the tramadol extended release beneficial, taking it first thing in the morning. This allows her significant pain relief and we will continue this for the next 6 months. Scripts will be sent electronically by Dr. Bairon Edwards. 2. The patient does continue her Voltaren gel. She recently filled her last prescription, but at this time, is not requesting a renewal. She does use this very sparingly on her knees, but does find it beneficial when they have flared. I did remind the patient that it is now oomf-kku-cfsvttn, so if she needs another prescription, she may call our office or obtain it at any local stores. 3. The patient will return in 6 months. Time spent on patient in consultation, reviewing her recent studies and clinical notes, physician reports and physical examination, and correlation of findings to determine possible treatment options, 12 minutes. Time spent preparing for appointment, reviewing prescription monitoring reports, reviewing previous records and proposed treatment options and reviewing current medications, 5 minutes. Time spent preparing and sending electronic prescriptions with collaborating physician, Dr. Bairon Edwards, documentation of visit, 5 minutes. Total time spent 22 minutes. <ELECTRONICALLY SIGNED> By: Kirsty Ware 08/04/21 0926 0937 Kirsty Ware /nt
== END ==
LOC: PAIN 06:49
PROVIDERS: ATTEND Clinical Nurse Specialist Adult Health
DX: M47.27 Other spondylosis with radiculopathy, lumbosacral region (principal); M47.26 Other spondylosis with radiculopathy, lumbar region; M79.662 Pain in left lower leg; M25.562 Pain in left knee; M25.561 Pain in right knee; M19.90 Unspecified osteoarthritis, unspecified site; E66.09 Other obesity due to excess calories; G89.29 Other chronic pain; Z88.8 Allergy status to other drugs, medicaments and biological substances; Z79.899 Other long term (current) drug therapy